=== PATIENT | male | born 1975 | race Asian ===

== ENCOUNTER 2017-03-28 16:01 | Inpatient (IN) | payer BC, OTHER ==
[~2017-03-28] VITALS: Ht 165.1 cm; Wt 55.5 kg
[~2017-03-28 16:01] MED LIST: ADV25050 INH; ALBU8.5H3 INH; MONT10TA24 PO; PRED10TA PO; RTPRO5 NEB
[2017-03-28] MEDS ORDERED: MAGNESIUM SULFATE 1 GM/D5W 100 ML ONE (16:06)
[2017-03-28] MEDS ORDERED: METHYLPREDNISOLONE 125 MG INJ ONE (16:06)
[2017-03-28] MEDS ORDERED: METHYLPREDNISOLONE 125 MG INJ IV STA (16:09)
[2017-03-28] MEDS ORDERED: SOD CHLORIDE 0.9% 1,000 ML IV STA (16:09)
[2017-03-28] MEDS ORDERED: IPRATROPIUM (NEB) 0.5 MG/2.5 ML AMP NEB STA (16:09)
[2017-03-28] MEDS ORDERED: MAGNESIUM SULFATE 2 GM/50 ML 50 ML IVPB STA (16:09)
[2017-03-28] MEDS ORDERED: ALBUTEROL 0.5% (NEB) 2.5 MG/0.5 ML AMP INH STA (16:09)
[2017-03-28 16:31] LABS: BASOPHIL # 0.1 10^3/ul (0.0-0.1); BASOPHILS % 0.9 % (0.0-2.0); EOSINOPHILS # 1.2 10^3/ul (0.0-0.5); HEMATOCRIT 49.8 % (42.0-52.0); HEMOGLOBIN 16.2 g/dl (14.0-18.0); LYMPHOCYTES # 2.7 10^3/ul (0.8-2.9); LYMPHOCYTES % 18.8 % (15.0-51.0); MEAN CORPUSCULAR HEMOGLOBIN 25.9 pg (29.0-33.0); MEAN CORPUSCULAR HGB CONC 32.5 g/dl (32.0-37.0); MEAN CORPUSCULAR VOLUME 79.6 fl (82.0-101.0); MEAN PLATELET VOLUME 9.6 fl (7.4-10.4); MONOCYTE # 0.9 10^3/ul (0.3-0.9); MONOCYTES % 6.1 % (0.0-11.0); NEUTROPHIL # 9.6 10^3/ul (1.6-7.5); NEUTROPHILS % 65.9 % (39.0-77.0); PLATELET COUNT 359 10^3/UL (140-415); RED BLOOD COUNT 6.26 10^6/ul (4.70-6.10); RED CELL DISTRIBUTION WIDTH 14.8 % (11.5-14.5); WHITE BLOOD COUNT 14.6 10^3/ul (4.8-10.8)
[2017-03-28 16:48] LABS: ANION GAP 28 (8-16); BLOOD UREA NITROGEN 10 mg/dl (7-20); CALCIUM 9.8 mg/dl (8.4-10.2); CARBON DIOXIDE 22 mmol/L (21-31); CHLORIDE 101 mmol/L (97-110); GLUCOSE 217 mg/dl (70-220); SODIUM 147 mmol/L (135-144)
[2017-03-28] MEDS ORDERED: IPRA4AER INHALATION (16:57)
[2017-03-28] MEDS ORDERED: ADV25050 INHALATION (16:57)
[2017-03-28] MEDS ORDERED: MONT10TA24 PO (16:58)
--- NOTE | 2017-03-28 16:58 | RADRPT ---
PROCEDURE: XR Chest. CLINICAL INDICATION: Shortness of breath, asthma TECHNIQUE: Single frontal view of the chest was obtained COMPARISON: None FINDINGS: The heart and mediastinum are within normal limits. There is increased opacity in the right upper lobe medially and right paratracheal region. There is no pleural effusion or pneumothorax. RPTAT: AA IMPRESSION: Increased opacity in the right upper lobe medially and paratracheal region, suspicious for right upp er lobe atelectasis. .Erick Marquez MD, MD Date Time Electronically viewed and signed by .Erick Marquez MD, MD on 03/28/2017 16:58 .S/
[2017-03-28] MEDS ORDERED: ALBU8.5H3 INH (16:59)
[2017-03-28 17:05] LABS: CREATININE 1.22 mg/dl (0.61-1.24); TROPONIN-I < 0.012 ng/ml (0.00-0.12)
[2017-03-28 17:24] LABS: Allen Test ACCEPTAB; Arterial Base Excess -12.3 mmol/L (-3.0-3); Arterial COHb 0.1 % (0.0-3.0); Arterial Fraction of Oxyhgb 98.8 % (93.0-99.0); Arterial HCO3 20.4 mmol/L (22.0-26.0); Arterial MetHb 0.2 % (0.0-1.5); Arterial Total Hemglobin 14.8 g/dl (12.0-18.0); Blood Gas IEPAP 22/6; Blood Gas PS 14; MODE MASK - BIPAP
[2017-03-28 17:49] LABS: ACETAMINOPHEN < 10.0 ug/ml (10.0-30.0); ETHANOL < 10.0 mg/dl; SALICYLATE < 1.0 mg/dl (5.0-30.0)
[2017-03-28] MEDS ORDERED: SOD CHLORIDE 0.9% 1,000 ML IV ONE (18:30)
[2017-03-28 18:31] LABS: COCAINE Positive (NEGATIVE)
[2017-03-28 18:42] LABS: BARBITURATES Negative (NEGATIVE); BENZODIAZEPINES Negative (NEGATIVE); CANNABINOIDS Negative (NEGATIVE); OPIATES Negative (NEGATIVE)
[2017-03-28 18:45] LABS: AADO2 Arterial 23.9 mmHg (7.0-24.0); Allen Test ACCEPTAB; Arterial Base Excess -4.3 mmol/L (-3.0-3); Arterial COHb 0.9 % (0.0-3.0); Arterial Fraction of Oxyhgb 97.4 % (93.0-99.0); Arterial HCO3 22.2 mmol/L (22.0-26.0); Arterial MetHb 0.3 % (0.0-1.5); Blood Gas IEPAP 15/5; Blood Gas PS 10; MODE BIPAP
--- NOTE | 2017-03-28 18:47 | ERA ---
ER Documentation Chief Complaint Date/Time DATE: 03/28/17 TIME: 18:33 Chief Complaint RESPIRATORY DISTRESS PULLED OUT OF A CAR, DIAPHORTIC AND PALE HPI This is a 41-year-old male with a history of asthma, significant daily tobacco use, a previous episode of respiratory distress requiring admission, never intubated, who is presenting unresponsive in acute respiratory distress. The patient does move spontaneously, but he does not move to pain and is unable to answer any questions. His friend and are with him and were able to provide some additional history. He reportedly felt sick yesterday with some mild shortness of breath. He felt worse this morning, and he called off of work. Apparently his friend went home this afternoon to check up on him and found him unresponsive on the floor. The patient did have a pulse at that time. His friend then threw him into the car and drove him to the hospital immediately. The patient had a albuterol inhaler in his pocket. He does not take any other medications. According to his , the patient is stubborn and does not often go to the hospital. ROS Patient unresponsive and unable to provide a review of systems. Medications Home Meds Reported Medications Albuterol Sulfate* (Proair HFA*) 8.5 Gm Hfa.aer.ad, 2 PUFF INH QID Y for WHEEZING AND SOB, #1 INHALER 03/28/17 Montelukast Sodium* (Montelukast Sodium*) 10 Mg Tablet, 10 MG PO QHS, #30 TAB 03/28/17 Albuterol/Ipratropium* (Combivent Respimat*) 20-100 Mcg/Inh - 4 Gm Aer.w.adap, 2 PUFF INHALATION Q6H, #1 INHALER 03/28/17 Salmeterol Xinaf/Fluticasone* (Advair*) 250-50 Diskus Inhaler, 1 INH INHALATION BID, #1 INHALER 03/28/17 Allergies Allergies: Coded Allergies: No Known Allergy (Unverified , 03/28/17) PMhx/Soc Medical and Surgical Hx: pt denies Surgical Hx History of Surgery: No Anesthesia Reaction: No Hx Neurological Disorder: No Hx Respiratory Disorders: Yes (ASTHMA / HX OF PNEUMONIA) Hx Cardiac Disorders: No Hx Psychiatric Problems: No Hx Miscellaneous Medical Probl: No Hx Alcohol Use: Yes Hx Substance Use: No Hx Tobacco Use: Yes Smoking Status: Current every day smoker FmHx Unable to assess secondary to patient unresponsiveness Physical Exam Vitals Vital Signs Date Time Temp Pulse Resp B/P Pulse Ox O2 Delivery O2 Flow Rate FiO2 03/28/17 19:15 97.5 91 22 129/95 100 Mask 9.0 03/28/17 17:40 97.1 104 19 129/97 100 BIPAP 8.0 03/28/17 17:32 97.1 102 20 120/101 100 BIPAP 8.0 03/28/17 17:20 97.1 104 21 135/97 100 BIPAP 8.0 03/28/17 17:11 96.8 103 20 126/101 100 BIPAP 8.0 03/28/17 16:30 96.8 97 25 145/99 100 BIPAP 8.0 03/28/17 16:09 97.5 108 30 137/110 100 03/28/17 16:05 96.7 100 16 137/95 100 BIPAP 15.0 03/28/17 16:05 Bag Valve Mask 15.0 03/28/17 16:05 Bag Valve Mask 15 03/28/17 16:02 98 100 50 03/28/17 16:02 99 16 100 50 Physical Exam Const: [] Head: Atraumatic Eyes: Normal Conjunctiva ENT: Normal External Ears, Nose and Mouth. Neck: Full range of motion..~ No meningismus. Resp: Clear to auscultation bilaterally Cardio: Regular rate and rhythm, no murmurs Abd: Soft, non tender, non distended. Normal bowel sounds Skin: No petechiae or rashes Back: No midline or flank tenderness Ext: No cyanosis, or edema Neur: Awake and alert Psych: Normal Mood and Affect Result Diagram: 03/28/17 1620 03/28/17 1620 Results 24 hrs Laboratory Tests Test 03/28/17 16:09 03/28/17 16:20 03/28/17 17:55 03/28/17 18:31 Blood Gas Specimen Source Blood arterial Blood arterial Arterial Blood Date Drawn 03/28/2017 4:10:52 PM 03/28/2017 6:40:58 PM Arterial Blood pH (Temp corrected) 7.014 7.302 Arterial Blood pCO2 (Temp correct) 82.0mmhg 46.0mmhg Arterial Blood pO2 (Temp corrected) 312.5mmHG 136.0mmHG Arterial Blood HCO3 20.4mmol/L 22.2mmol/L Arterial Blood Base Excess -12.3mmol/L -4.3mmol/L Arterial Blood Oxygen Saturation 99.1mmHG 98.6mmHG [place] Test ACCEPTAB ACCEPTAB Arterial Blood Gas Puncture Site Right Radial Left Radial Arterial Blood Carboxyhemoglobin 0.1% 0.9% Arterial Blood Methemoglobin 0.2% 0.3% Oxyhemoglobin Percent 98.8% 97.4% Total Hemoglobin 14.8g/dl 15.0g/dl Blood Gas Temperature 37.0C 37.0C Blood Gas Respiration Rate 16.0 15.0 Blood Gas Actual Respiration Rate 32 19 Blood Gas Modality MASK - BIPAP BIPAP FiO2 50.0% 30.0% Blood Gas Pressure Support 14 10 Blood Gas IPAP/EPAP Ratio 22/6 15/5 Blood Gas Critical Value Read Back DR. JC Blood Gas Notified Whom RT RT Blood Gas Notified Time 03/28/2017 5:22:38 PM 03/28/2017 6:45:25 PM White Blood Count 14.610^3/ul Red Blood Count 6.2610^6/ul Hemoglobin 16.2g/dl Hematocrit 49.8% Mean Corpuscular Volume 79.6fl Mean Corpuscular Hemoglobin 25.9pg Mean Corpuscular Hemoglobin Concent 32.5g/dl Red Cell Distribution Width 14.8% Platelet Count 69939^3/UL Mean Platelet Volume 9.6fl Neutrophils % 65.9% Lymphocytes % 18.8% Monocytes % 6.1% Eosinophils % 8.0% Basophils % 0.9% Nucleated Red Blood Cells % 0.0/100WBC Neutrophils # 9.610^3/ul Lymphocytes # 2.710^3/ul Monocytes # 0.910^3/ul Eosinophils # 1.210^3/ul Basophils # 0.110^3/ul Nucleated Red Blood Cells # 0.010^3/ul Sodium Level 147mmol/L Potassium Level 4.0mmol/L Chloride Level 101mmol/L Carbon Dioxide Level 22mmol/L Anion Gap 28 Blood Urea Nitrogen 10mg/dl Creatinine 1.22mg/dl Glucose Level 217mg/dl Calcium Level 9.8mg/dl Troponin I < 0.012ng/ml Salicylates Level < 1.0mg/dl Acetaminophen Level < 10.0ug/ml Ethyl Alcohol Level < 10.0mg/dl Urine Opiates Screen Negative Urine Barbiturates Negative Urine Amphetamines Screen Negative Urine Benzodiazepines Screen Negative Urine Cocaine Screen Positive Urine Cannabinoids Negative Blood Gas A-a O2 Differential 23.9mmHg Current Medications Medications (Trade) Dose Ordered Sig/Rylie Route PRN Reason Start Time Stop Time Status Last Admin Dose Admin Sodium Chloride (NS) 1,000 ml @ 1,000 mls/hr Q1H STAT IV 03/28/17 16:09 03/28/17 17:08 DC 03/28/17 16:32 Ipratropium [place] (Atrovent 0.02% (Neb)) 1.5 mg ONCE STAT NEB 03/28/17 16:09 03/28/17 16:12 DC 03/28/17 16:51 Albuterol (Proventil 0.5% (Neb)) 15 mg ONCE STAT INH 03/28/17 16:09 03/28/17 16:12 DC 03/28/17 16:51 Methylprednisolone Sodium Succinate 125 mg 125 mg ONCE STAT IV 03/28/17 16:09 03/28/17 16:12 DC 03/28/17 16:29 Magnesium Sulfate (Magnesium Sulfate 2 Gm/50 ml) 50 ml @ 25 mls/hr ONCE STAT IVPB 03/28/17 16:09 03/28/17 18:08 DC 03/28/17 16:24 Methylprednisolone Sodium Succinate 125 mg 125 mg STK-MED ONCE .ROUTE 03/28/17 16:06 03/28/17 18:22 DC Magnesium Sulfate/ Dextrose 100 ml @ ud STK-MED ONCE .ROUTE 03/28/17 16:06 03/28/17 18:22 DC Sodium Chloride (NS) 1,000 ml @ 1,000 mls/hr Q1H ONCE IV 03/28/17 18:30 03/28/17 19:29 03/28/17 18:54 Albuterol (Proventil 0.083% (Neb)) 15 mg ONCE STAT HHN 03/28/17 18:51 03/28/17 19:00 DC 03/28/17 19:03 Albuterol (Proventil 0.083% (Neb)) 2.5 mg STK-MED ONCE .ROUTE 03/28/17 18:54 03/28/17 18:55 DC Procedures/MDM The patient presented unresponsive, in severe respiratory distress and critically ill. The patient was immediately brought to her room. The patient appeared to be severely dyspneic and was on the verge of apnea. He was placed on high flow nasal cannula in addition to high flow through the BVM and we supported his breaths initially. The patient was unable to speak, but he did follow commands with significant redirection and persistence. There is a consideration to intubate this patient, but it was initially deferred as he was a known asthmatic and there is concern of a prolonged intubation course. The patient was started on BiPAP immediately. He was given serial doses of nebulized albuterol and Atrovent. He was given 2 g of magnesium. He is given 125 mg of Solu-Medrol. The patient's initial ABG demonstrated a pH of 7.0 and a CO2 of 80. The patient did have hypercarbic respiratory failure. The patient had a mild leukocytosis but no left shift. I do anticipate that this is reactive. The patient's history demonstrates a possibility of a viral syndrome leading to his asthma exacerbation. I do not suspect a bacterial etiology at this time and antibiotics will not be initiated. The patient's CMP is unremarkable. A UDS was obtained that was positive for cocaine. The patient did not have alcohol in his system. The patient's initial EKG demonstrated a sinus tachycardia, indeterminate to right axis deviation, ST depressions in leads II and V4 through V6. I was concerned of a demand ischemia. The patient's troponin was negative. The patient's mentation significantly improved while on BiPAP. A repeat ABG demonstrated a pH of 7.302 and CO2 of 46. A repeat EKG demonstrated a sinus tachycardia with right atrial enlargement. However, he no longer had any T-wave inversions or ST depressions. I suspect that his previous EKG was associated with significant cardiac stress and demand ischemia. This will need to be monitored in the hospital, but I do not believe that the patient is going through an acute coronary syndrome at this time. The patient will require admission to the ICU for further evaluation and management. We will attempt to wean him off of BiPAP in the emergency department as his symptoms have markedly improved. Critical care time was 35 minutes not including any other billable procedures. Departure Diagnosis: Primary Impression: Respiratory distress Additional Impressions: Acute respiratory failure with hypoxia and hypercarbia Asthma exacerbation Respiratory acidosis Condition: Critical CHERY JC MD Mar 28, 2017 18:47
[2017-03-28] MEDS ORDERED: ALBUTEROL 0.083% (NEB) 2.5 MG/3 ML AMP HHN STA (18:51)
[2017-03-28] MEDS ORDERED: ALBUTEROL 0.083% (NEB) 2.5 MG/3 ML AMP ONE (18:54)
[2017-03-28] MEDS ORDERED: LORAZEPAM 2 MG INJ IV PRN (22:00)
[2017-03-28] MEDS ORDERED: ONDANSETRON 4 MG INJ IV PRN (22:00)
[2017-03-28] MEDS ORDERED: ACETAMINOPHEN 325 MG TAB PO PRN (22:00)
[2017-03-28] MEDS ORDERED: NACL 0.9% 3 ML SYG IV SCH (22:00)
[2017-03-28 22:15] VITALS: TEMP 98.8
[2017-03-28 23:08] VITALS: PULSE 110
[2017-03-28 23:10] VITALS: PULSE 103
--- NOTE | 2017-03-28 23:15 | HP ---
Date/Time of Note Date/Time of Note DATE: 03/28/17 TIME: 23:15 Assessment/Plan VTE Prophylaxis VTE Prophylaxis Intervention: SCD's Assessment/Plan Chief Complaint/Hosp Course This is a 41-year-old male being admitted to the telemetry floor for: #1 asthma exacerbation: The underlying cause of this trigger is not known at this time however patient was positive for cocaine use and drug screen this could have caused this though patient denies even using cocaine. Patient was initially deemed possibly a candidate to be taken to the ICU, however patient subsequently improved on BiPAP. His ABG improved overall. Patient eventually was able to get weaned off the BiPAP the current time patient will continue to receive IV steroids, scheduled breathing treatments, continue home inhalers, no fevers at this time or any signs of infection. Will will obtain a CAT scan to further assess the lung morphology especially in the setting of patient's recent cocaine use. At the current time I do not feel antibiotics are indicated however will continue to monitor. #2 positive urine drug screen: Patient was found positive for cocaine. At the current time will put patient on as needed Ativan's for signs of agitation. Patient denies any recent use of cocaine. Monitor for any signs of withdrawal. #3 DVT and GI prophylaxis: SCDs, Protonix Further treatment strategy will be implemented as per the clinical course Problems: HPI/ROS Admit Date/Time Admit Date/Time Hx of Present Illness Chief complaint: Shortness of breath Medical information was gathered from the ED physician documentation as well as by the sister and the patient at the bedside. This is a 41-year-old male with a history of asthma, significant daily tobacco use, a previous episode of respiratory distress requiring admission, never intubated, who is presenting unresponsive in acute respiratory distress. Initially the patient was moving spontaneously but he was not properly responding to questions. At that time his was at the bedside and provided information to the ED physician. He reportedly felt sick yesterday with some mild shortness of breath. He felt worse this morning, and he called off of work. Apparently his friend went home this afternoon to check up on him and found him unresponsive on the floor. The patient did have a pulse at that time. His friend then threw him into the car and drove him to the hospital immediately. The patient had a albuterol inhaler in his pocket. He does not take any other medications. According to his , the patient is stubborn and does not often go to the hospital. Upon my examination patient was still somnolent but he was easily arousable and he was answering questions appropriately. His sister was at the bedside. She denied any knowledge of the patient having any previous history of drug use. Patient denied any history of drug use and when he was question regarding the cocaine found in his urine drug screen he denied it. Patient was able to be weaned off to room air prior to my examination. Allergies: Tuna Medications: See ESDRAS FIGUEROA Const: As per HPI Eyes : No pain discharge or redness or change in visual acuity ENT: No pain, sore throat, congestion, congestion, dysphagia or discharge Respiratory: As per HPI Cardiovascular: No chest pain, palpitation, PND, or edema GI : no change in appetite, abdominal pain, nausea, vomiting, diarrhea, constipation, or change in the color his stool Genitourinary: No dysuria, hematuria, flank pain , discharge or CVA tenderness Musculoskeletal: No joint pain, back pain, neck pain, restricted range of motion in neck or joints Skin: No rash, bruising or hives Neuro: As per HPI Endocrine: No polyuria, polydipsia, temperature intolerance Psych: No hallucination, depression, anxiety or suicidal ideation PMH/Family/Social Past Medical History Asthma, bronchitis Past Surgical History Past Surgical Hx: no surgical history Family History Significant Family History: no pertinent family hx Social History Alcohol Use: none Smoking Status: Current every day smoker (Half pack per day 10 years) Drug Use: other (Patient denies cocaine use, however there was cocaine positive urine drug screen.) Exam/Review of Systems Vital Signs Vitals Vital Signs Date Time Temp Pulse Resp B/P Pulse Ox O2 Delivery O2 Flow Rate FiO2 03/28/17 22:15 98.8 107 20 100/77 98 Nasal Cannula 2.0 03/28/17 16:02 50 Exam Exam General: Patient is lying in bed somnolent but arousable HEENT: Atraumatic, normocephalic. The pupils are equal, round and reactive. Extraocular motor are intact Neck: Supple with full range of motion. No rigidity or meningismus Chest: Nontender Lungs: Expiratory wheezing on exam, in no acute respiratory distress Heart: Sinus tachycardia Abdomen: Soft , nontender, nondistended , bowel sounds are present. No guarding no rebound tenderness , No masses or organomegaly. No costovertebral temporal angle mass Extremities: Normal to inspection, no edema no cyanosis Neurologic: Easily arousable, able to answer questions appropriately. Additional Comments PROCEDURE: XR Chest. CLINICAL INDICATION: Shortness of breath, asthma TECHNIQUE: Single frontal view of the chest was obtained COMPARISON: None FINDINGS: The heart and mediastinum are within normal limits. There is increased opacity in the right upper lobe medially and right paratracheal region. There is no pleural effusion or pneumothorax. RPTAT: AA IMPRESSION: Increased opacity in the right upper lobe medially and paratracheal region, suspicious for right upper lobe atelectasis. .Erick Marquez MD, MD Date Time Electronically viewed and signed by .Erick Marquez MD, MD on 03/28/2017 16: 58 .S/ CC: CHERY JC MD Labs Result Diagram: 03/28/17 1620 03/28/17 1620 Medications Medications Current Medications Sodium Chloride (NS) 1,000 ml @ 80 mls/hr [id number] IV ; Start 03/28/17 at 21:53 Lorazepam (Ativan) 1 mg Q4H PRN IV AGITATION/ANXIETY; Start 03/28/17 at 22:00 Ondansetron HCl (Zofran Inj) 4 mg Q6H PRN IV NAUSEA AND/OR VOMITING; Start 03/28 at 22:00 Acetaminophen (Tylenol Tab) 650 mg Q6H PRN PO PAIN LEVEL 1-3 OR FEVER; Start at 22:00 Methylprednisolone Sodium Succinate (Solu-Medrol) 40 mg Q12 IV ; Start 03/29/17 at 09:00 LUZ EARLY Mar 28, 2017 23:15
--- NOTE | 2017-03-28 23:15 | RADRPT ---
PROCEDURE: CT Chest without contrast. CLINICAL INDICATION: Asthma exacerbation, history of cocaine use. TECHNIQUE: A CT scan of the chest without contrast was performed. Coronal and sagittal reformatted images were obtained from the axial source images. CTDIvol: 4.11 mGy. DLP: 169 point and mGy-cm. One or more of the following dose reduction techniques were used: - Automated exposure control. - Adjustment of the mA and/or kV according to patient size. - Use of iterative reconstruction technique. COMPARISON: None. FINDINGS: There is no suspicious thyroid lesion. No thoracic lymphadenopathy is seen. The trachea and mainst em bronchi are patent. The heart is not enlarged. There is no pericardial effusion. There is diffuse bronchial wall thickening. No pulmonary edema or consolidation is identified. Mil d paraseptal emphysema is noted along the right upper lobe. There is no pleural effusion or pneumoth orax. Limited evaluation of the upper abdomen is unremarkable. There is no suspicious osseous lesion. IMPRESSION: 1. Diffuse bronchial wall thickening, possibly representing an inflammatory or infectious process. 2. No pulmonary edema or consolidation. RPTAT: HTAR .Tyson Garrett MD, MD Date Time Electronically viewed and signed by .Tyson Garrett MD, on 03/28/2017 23:15 .R/
[2017-03-28 23:28] VITALS: Ht 165.1 cm; Wt 55.5 kg
[2017-03-28 23:31] VITALS: BP 110/61; RESP 18
[2017-03-29] VITALS (11 sets, daily range): BP systolic 97–125; BP diastolic 57–78; PULSE 88–100; RESP 16–19
[2017-03-29] MEDS: SOD CHLORIDE 0.9% 1,000 ML IV SCH ×2 (00:15→10:23)
[2017-03-29] MEDS: LEVALBUTEROL (NEB) 1.25 MG/0.5 ML AMP HHN SCH ×3 (01:19→08:18)
[2017-03-29] MEDS: KETOROLAC 15 MG INJ IV PRN (01:26)
[2017-03-29] MEDS ORDERED: ALBUTEROL 18 GM INHALER INH PRN (04:30)
[2017-03-29] MEDS ORDERED: NON-FORMULARY/PATIENT OWN MED (Albuterol/Ipratropium* (Combivent Respimat*) 2 PUFF) INHALATION SCH (04:30)
[2017-03-29] MEDS ORDERED: PANTOPRAZOLE (EC) 40 MG TAB PO SCH (06:00)
[2017-03-29 07:50] LABS: BASOPHILS % 0.1 % (0.0-2.0); HEMATOCRIT 36.2 % (42.0-52.0); HEMOGLOBIN 12.1 g/dl (14.0-18.0); LYMPHOCYTES # 0.7 10^3/ul (0.8-2.9); LYMPHOCYTES % 9.1 % (15.0-51.0); MEAN CORPUSCULAR HEMOGLOBIN 25.1 pg (29.0-33.0); MEAN CORPUSCULAR HGB CONC 33.4 g/dl (32.0-37.0); MEAN CORPUSCULAR VOLUME 74.9 fl (82.0-101.0); MEAN PLATELET VOLUME 9.3 fl (7.4-10.4); MONOCYTE # 0.7 10^3/ul (0.3-0.9); MONOCYTES % 9.5 % (0.0-11.0); NEUTROPHILS % 80.9 % (39.0-77.0); PLATELET COUNT 259 10^3/UL (140-415); RED BLOOD COUNT 4.83 10^6/ul (4.70-6.10); RED CELL DISTRIBUTION WIDTH 14.6 % (11.5-14.5); WHITE BLOOD COUNT 7.4 10^3/ul (4.8-10.8)
[2017-03-29 08:21] LABS: ALBUMIN 3.9 g/dl (3.3-4.9); ALBUMIN/GLOBULIN RATIO 1.69; BILIRUBIN,INDIRECT 0.4 mg/dl (0-1.1); BILIRUBIN,TOTAL 0.4 mg/dl (0.2-1.3); CALCIUM 8.9 mg/dl (8.4-10.2); CREATININE 0.87 mg/dl (0.61-1.24); MAGNESIUM 2.2 mg/dl (1.7-2.5); TOTAL PROTEIN 6.2 g/dl (6.1-8.1)
[2017-03-29] MEDS: SALMETEROL/FLUTICASONE 250/50 INHA INH SCH ×2 (08:41→22:05)
[2017-03-29] MEDS ORDERED: METHYLPREDNISOLONE 40 MG INJ IV SCH (09:00)
[2017-03-29] MEDS ORDERED: ALBUTEROL/IPRATROPIUM (NEB) 3 ML AMP HHN SCH (10:00)
--- NOTE | 2017-03-29 15:15 | PN ---
Date/Time of Note Date/Time of Note DATE: 03/29/17 TIME: 15:12 Assessment/Plan VTE Prophylaxis VTE Prophylaxis Intervention: SCD's Lines/Catheters IV [facility]ter [facility] Urinary Cath still in place: No Assessment/Plan Assessment/Plan 41 yo M with pmhx asthma admitted for wheezing/SOB 2/2 asthma exacerbation. Suspect 2/2 tobacco and/or cocaine abuse PLAN PO steroids nebs abstention from illicits advised NRT discharge once wheezing improves Subjective 24 Hr Interval Summary Free Text/Dictation Pt endorses smoking cigarettes but denies illicits. Reports breathing is a little better Exam/Review of Systems Vital Signs Vitals Vital Signs Date Time Temp Pulse Resp B/P Pulse Ox O2 Delivery O2 Flow Rate FiO2 03/29/17 13:46 87 20 98 Nasal Cannula 2.0 03/29/17 12:03 98.4 105/57 03/29/17 04:50 28 Intake and Output 03/28/17 03/28/17 03/29/17 15:00 23:00 07:00 Intake Total 980 ml Output Total 500 ml Balance 480 ml Exam nad, sitting up in bed no mrg lungs with copious wheezing in all [place] abd soft no rashes lung imaging results reviewed UTox + for cocaine Results Result Diagram: 03/29/17 0725 03/29/17 0725 Results 24 hrs Laboratory Tests Test 03/28/17 15:53 03/28/17 16:09 03/28/17 16:20 03/28/17 17:55 Bedside Glucose 159 Blood Gas Specimen Source Blood arterial Arterial Blood Date Drawn 03/28/2017 4:10:52 PM Arterial Blood pH (Temp corrected) 7.014 *L Arterial Blood pCO2 (Temp correct) 82.0 *H Arterial Blood pO2 (Temp corrected) 312.5 H Arterial Blood HCO3 20.4 L Arterial Blood Base Excess -12.3 L Arterial Blood Oxygen Saturation 99.1 H [place] Test ACCEPTAB Arterial Blood Gas Puncture Site Right Radial Arterial Blood Carboxyhemoglobin 0.1 Arterial Blood Methemoglobin 0.2 Oxyhemoglobin Percent 98.8 Total Hemoglobin 14.8 Blood Gas Temperature 37.0 Blood Gas Respiration Rate 16.0 Blood Gas Actual Respiration Rate 32 Blood Gas Modality MASK - BIPAP FiO2 50.0 Blood Gas Pressure Support 14 Blood Gas IPAP/EPAP Ratio 22/6 Blood Gas Critical Value Read Back DR. JC Blood Gas Notified Whom RT Blood Gas Notified Time 03/28/2017 5:22:38 PM White Blood Count 14.6 H Red Blood Count 6.26 H Hemoglobin 16.2 Hematocrit 49.8 Mean Corpuscular Volume 79.6 L Mean Corpuscular Hemoglobin 25.9 L Mean Corpuscular Hemoglobin Concent 32.5 Red Cell Distribution Width 14.8 H Platelet Count 359 Mean Platelet Volume 9.6 Neutrophils % 65.9 Lymphocytes % 18.8 Monocytes % 6.1 Eosinophils % 8.0 H Basophils % 0.9 Nucleated Red Blood Cells % 0.0 Neutrophils # 9.6 H Lymphocytes # 2.7 Monocytes # 0.9 Eosinophils # 1.2 H Basophils # 0.1 Nucleated Red Blood Cells # 0.0 Sodium Level 147 H Potassium Level 4.0 Chloride Level 101 Carbon Dioxide Level 22 Anion Gap 28 H Blood Urea Nitrogen 10 Creatinine 1.22 Glucose Level 217 Calcium Level 9.8 Troponin I < 0.012 Salicylates Level < 1.0 L Acetaminophen Level < 10.0 L Ethyl Alcohol Level < 10.0 Urine Opiates Screen Negative Urine Barbiturates Negative Urine Amphetamines Screen Negative Urine Benzodiazepines Screen Negative Urine Cocaine Screen Positive Urine Cannabinoids Negative Test 03/28/17 18:31 03/29/17 07:25 Blood Gas Specimen Source Blood arterial Arterial Blood Date Drawn 03/28/2017 6:40:58 PM Arterial Blood pH (Temp corrected) 7.302 L Arterial Blood pCO2 (Temp correct) 46.0 H Arterial Blood pO2 (Temp corrected) 136.0 H Arterial Blood HCO3 22.2 Arterial Blood Base Excess -4.3 L Arterial Blood Oxygen Saturation 98.6 H [place] Test ACCEPTAB Arterial Blood Gas Puncture Site Left Radial Arterial Blood Carboxyhemoglobin 0.9 Arterial Blood Methemoglobin 0.3 Blood Gas A-a O2 Differential 23.9 Oxyhemoglobin Percent 97.4 Total Hemoglobin 15.0 Blood Gas Temperature 37.0 Blood Gas Respiration Rate 15.0 Blood Gas Actual Respiration Rate 19 Blood Gas Modality BIPAP FiO2 30.0 Blood Gas Pressure Support 10 Blood Gas IPAP/EPAP Ratio 15/5 Blood Gas Notified Whom RT Blood Gas Notified Time 03/28/2017 6:45:25 PM White Blood Count 7.4 # Red Blood Count 4.83 # Hemoglobin 12.1 #L Hematocrit 36.2 #L Mean Corpuscular Volume 74.9 L Mean Corpuscular Hemoglobin 25.1 L Mean Corpuscular Hemoglobin Concent 33.4 Red Cell Distribution Width 14.6 H Platelet Count 259 # Mean Platelet Volume 9.3 Neutrophils % 80.9 H Lymphocytes % 9.1 L Monocytes % 9.5 Eosinophils % 0.0 Basophils % 0.1 Nucleated Red Blood Cells % 0.0 Neutrophils # 6.0 Lymphocytes # 0.7 L Monocytes # 0.7 Eosinophils # 0.0 Basophils # 0.0 Nucleated Red Blood Cells # 0.0 Sodium Level 141 Potassium Level 4.0 Chloride Level 101 Carbon Dioxide Level 27 Anion Gap 17 #H Blood Urea Nitrogen 15 Creatinine 0.87 Glucose Level 123 # Hemoglobin A1c 5.1 Calcium Level 8.9 Magnesium Level 2.2 Total Bilirubin 0.4 Direct Bilirubin 0.00 Indirect Bilirubin 0.4 Aspartate Amino Transf (AST/SGOT) 22 Alanine Aminotransferase (ALT/SGPT) 38 Alkaline Phosphatase 40 L Total Protein 6.2 Albumin 3.9 Globulin 2.30 Albumin/Globulin Ratio 1.69 Medications Medications Current Medications Ketorolac Tromethamine (Toradol) 15 mg Q6H PRN IV PAIN Last administered on 03/29 01:26; Admin Dose 15 MG; Start 03/29/17 at 00:00; Stop 04/01/17 at 00:00 Montelukast Sodium (Singulair) 10 mg QHS PO ; Start 03/29/17 at 21:00 Salmeterol Xinafoate/ Fluticasone (Advair 250/50 Diskus) 1 inh BID INH Last administered on 03/29/17 08:41; Admin Dose 1 INH; Start 03/29/17 at 09:00 Prednisone (Prednisone) 40 mg DAILY PO ; Start 03/30/17 at 09:00 BRENT BRAY MD Mar 29, 2017 15:14
[2017-03-29] MEDS ORDERED: NICOTINE (21 MG/24 HR) PATCH TRANSDERM ONE (15:30)
[2017-03-29] MEDS ORDERED: MONTELUKAST 10 MG TAB PO SCH (21:00)
[2017-03-29] MEDS: NICOTINE (21 MG/24 HR) PATCH TRANSDERM SCH (22:05)
[2017-03-30] VITALS (7 sets, daily range): BP systolic 124–132; BP diastolic 77–88; PULSE 67–75; RESP 19–20
--- NOTE | 2017-03-30 01:52 | CONS ---
DATE OF ADMISSION: 03/28/2017 DATE OF CONSULTATION: 03/29/2017 Pulmonary Consultation REASON FOR CONSULTATION: Respiratory distress. Thank you, Dr. Fernando, for this consultation. HISTORY OF PRESENT ILLNESS: This is a 41-year-old gentleman, poor historian, came in yesterday, significant respiratory distress and altered. Apparently had worsening dyspnea yesterday with mild nausea. He was found unresponsive by a friend on the floor but did have a pulse at that time. Brought to the hospital where he was placed on supplemental oxygen, given bronchodilator treatment with subsequent improvement in respiratory status. Urinalysis was positive for cocaine. PAST MEDICAL HISTORY: Tobacco use. Questionable asthma. History substance abuse, positive for cocaine. MEDICATION: Medications per chart. ALLERGIES: ALLERGIES ARE NONE. SOCIAL HISTORY: Positive tobacco history. Occasional alcohol and positive urinalysis for cocaine. FAMILY HISTORY: Noncontributory. REVIEW OF SYSTEMS: Twelve point review of systems negative other than that mentioned above. PHYSICAL EXAMINATION: GENERAL APPEARANCE: Well-developed, well-nourished gentleman, comfortable at rest, no acute distress. VITAL SIGNS: Currently afebrile. Pulse is 99, blood pressure 106/87, O2 sat 98 percent on 2 L nasal cannula. NECK: Supple. No JVD or lymphadenopathy. CARDIAC: No added sounds or murmurs. CHEST: Diminished air movement bilaterally but no rales or wheezes. ABDOMEN: Soft, nontender. No guarding or rebound. EXTREMITIES: No cyanosis, clubbing or edema. NEUROLOGIC: No focal deficits. LABORATORY: Chest x-ray shows bronchial wall thickening. Possible right upper lobe atelectasis on repeat chest x-ray. Labs: White count now within normal limits 7.4, hemoglobin 12.1, platelets of 259. Chemistry within normal limits. ABG pH 7.3, pCO2 of 46, pO2 of 136. As stated, urinalysis was positive for cocaine. IMPRESSION AND PLAN: 1. Likely acute bronchospasm secondary to substance abuse. Possible underlying acute bronchitis also. 2. Incomplete data. 3. Ongoing tobacco use. Patient will require: 4. Steroid taper. 5. Bronchodilators. 6. Anticipate discharge soon. Needs counseling on drug abuse. Dictated By: Jadiel Valdez MD /dori/roman /Document#: [id number]
[2017-03-30] MEDS: KETOROLAC 15 MG INJ IV PRN (04:17)
[2017-03-30] MEDS: NICOTINE (21 MG/24 HR) PATCH TRANSDERM SCH (08:14)
[2017-03-30] MEDS: SALMETEROL/FLUTICASONE 250/50 INHA INH SCH (08:14)
[2017-03-30] MEDS ORDERED: predniSONE 20 MG TAB PO SCH (09:00)
[2017-03-30] MEDS ORDERED: ADV25050 INHALATION (09:41)
[2017-03-30] MEDS ORDERED: ALBU2.5V3 NEB (09:41)
[2017-03-30] MEDS ORDERED: ALBU8.5H3 INH (09:41)
[2017-03-30] MEDS ORDERED: MONT10TA24 PO (09:41)
[2017-03-30] MEDS ORDERED: PRED20TA PO (09:41)
--- NOTE | 2017-03-30 10:08 | PDOCDIS ---
Discharge Instructions CONDITION Patient Condition: Stable HOME CARE INSTRUCTIONS: Special Diet: reg ACTIVITY: Activity Restrictions: Slowly Increase Activity FOLLOW UP/APPOINTMENTS Follow-up Plan Follow up with your regular doctor within 7 days NO SMOKING OF ANY KIND Please schedule an appointment with the lung doctor to get your asthma better controlled (you already have his card) BRENT BRAY MD Mar 30, 2017 10:08
--- NOTE | 2017-03-30 10:13 | DS ---
Date/Time of Note Date/Time of Note DATE: 03/30/17 TIME: 10:09 Discharge Summary Admission/Discharge Info Admit Date/Time Mar 28, 2017 at 20:24 Discharge Date/Time Discharge Diagnosis asthma exacerbation Patient Condition: Stable Consults pulmonology Procedures CXR 8.8 IMPRESSION: Increased opacity in the right upper lobe medially and paratracheal region, suspicious for right upper lobe atelectasis. NCCT chest 8.8 IMPRESSION: 1. Diffuse bronchial wall thickening, possibly representing an inflammatory or infectious process. 2. No pulmonary edema or consolidation. Hx of Present Illness Chief complaint: Shortness of breath Medical information was gathered from the ED physician documentation as well as by the sister and the patient at the bedside. This is a 41-year-old male with a history of asthma, significant daily tobacco use, a previous episode of respiratory distress requiring admission, never intubated, who is presenting unresponsive in acute respiratory distress. Initially the patient was moving spontaneously but he was not properly responding to questions. At that time his was at the bedside and provided information to the ED physician. He reportedly felt sick yesterday with some mild shortness of breath. He felt worse this morning, and he called off of work. Apparently his friend went home this afternoon to check up on him and found him unresponsive on the floor. The patient did have a pulse at that time. His friend then threw him into the car and drove him to the hospital immediately. The patient had a albuterol inhaler in his pocket. He does not take any other medications. According to his , the patient is stubborn and does not often go to the hospital. Upon my examination patient was still somnolent but he was easily arousable and he was answering questions appropriately. His sister was at the bedside. She denied any knowledge of the patient having any previous history of drug use. Patient denied any history of drug use and when he was question regarding the cocaine found in his urine drug screen he denied it. Patient was able to be weaned off to room air prior to my examination. Allergies: Tuna Medications: See MAR Hospital Course Pt admitted for asthma exacerbation. Given steroid burst, started on inhalers. Regarding pt's +Utox for cocaine, pt states he smokes THC frequently and thinks he may have smoked something "laced" with cocaine. Given his known asthma, pt advised to not smoke any substances to prevent worsening his asthma. Breathing improved during his stay and pt requested to be discharged on date of discharge. Pt discharged to complete steroid burst, all maintenance meds rewritten. Pt advised to f/u with PCP and pulm Home Meds Active Scripts Albuterol Sulfate* (Albuterol Sulfate* Neb) 0.083%-3 Ml Neb, 1.25 MG NEB Q3H Y for WHEEZING AND SOB, #30 VIAL Prov:BRENT BRAY MD 03/30/17 Prednisone* (Prednisone*) 20 Mg Tab, 40 MG PO DAILY for 4 Days, #4 TAB Prov:BRENT BRAY MD 03/30/17 Albuterol Sulfate* (Proair HFA*) 8.5 Gm Hfa.aer.ad, 2 PUFF INH QID Y for WHEEZING AND SOB, #1 INHALER Prov:BRENT BRAY MD 03/30/17 Montelukast Sodium* (Montelukast Sodium*) 10 Mg Tablet, 10 MG PO QHS, #30 TAB Prov:BRENT BRAY MD 03/30/17 Salmeterol Xinaf/Fluticasone* (Advair*) 250-50 Diskus Inhaler, 1 INH INHALATION BID for 30 Days, #1 INHALER Prov:BRENT BRAY MD 03/30/17 Prednisone* (Prednisone*) 10 Mg Tab, 10 MG PO DAILY, #30 TAB 1. Take 40mg by mouth daily for 3 days 2. then 30mg by mouth daily for 3 days 3. then 20mg by mouth daily for 3 days 4. then 10mg by mouth daily for 3 days Prov:BJ STEARNS 02/22/16 Salmeterol Xinaf/Fluticasone* (Advair*) 250-50 Diskus Inhaler, 1 INH INH BID for 30 Days Prov:BJ STEARNS 02/22/16 Montelukast Sodium* (Montelukast Sodium*) 10 Mg Tablet, 10 MG PO HS for 30 Days , TAB Prov:BJ STEARNS 02/22/16 Albuterol Sulfate* (Proventil* Neb) 0.5% Nebu, 2.5 MG NEB Q2H RESP THERAPY Y for SHORTNESS OF BREATH, #90 Prov:BJ STEARNS 02/22/16 Albuterol Sulfate* (Proair HFA*) 8.5 Gm Hfa.aer.ad, 2 PUFF INH Q4H Y for WHEEZING AND SOB, #1 INHALER Prov:DARYNBJ 02/22/16 Reported Medications Albuterol/Ipratropium* (Combivent Respimat*) 20-100 Mcg/Inh - 4 Gm Aer.w.adap, 2 PUFF INHALATION Q6H, #1 INHALER 03/28/17 Follow-up Plan PCP within 7 days pulm for asthma management Primary Care Provider Time spent on discharge: > 30 minutes BRENT BRAY MD Mar 30, 2017 10:13
[2017-03-30 10:15] LABS: BASOPHILS % 0.5 % (0.0-2.0); EOSINOPHILS # 0.5 10^3/ul (0.0-0.5); EOSINOPHILS % 5.9 % (0.0-7.0); HEMATOCRIT 38.9 % (42.0-52.0); HEMOGLOBIN 12.8 g/dl (14.0-18.0); LYMPHOCYTES # 1.3 10^3/ul (0.8-2.9); LYMPHOCYTES % 15.5 % (15.0-51.0); MEAN CORPUSCULAR HEMOGLOBIN 24.8 pg (29.0-33.0); MEAN CORPUSCULAR HGB CONC 32.9 g/dl (32.0-37.0); MEAN CORPUSCULAR VOLUME 75.4 fl (82.0-101.0); MEAN PLATELET VOLUME 9.5 fl (7.4-10.4); MONOCYTE # 0.4 10^3/ul (0.3-0.9); MONOCYTES % 4.8 % (0.0-11.0); NEUTROPHILS % 72.9 % (39.0-77.0); PLATELET COUNT 264 10^3/UL (140-415); RED BLOOD COUNT 5.16 10^6/ul (4.70-6.10); RED CELL DISTRIBUTION WIDTH 14.8 % (11.5-14.5); WHITE BLOOD COUNT 8.2 10^3/ul (4.8-10.8)
[2017-03-30 10:37] LABS: ALBUMIN 4.3 g/dl (3.3-4.9); ALBUMIN/GLOBULIN RATIO 1.79; BILIRUBIN,INDIRECT 0.5 mg/dl (0-1.1); BILIRUBIN,TOTAL 0.5 mg/dl (0.2-1.3); CALCIUM 9.3 mg/dl (8.4-10.2); CREATININE 0.98 mg/dl (0.61-1.24); MAGNESIUM 1.8 mg/dl (1.7-2.5); POTASSIUM 4.3 mmol/L (3.5-5.1); TOTAL PROTEIN 6.7 g/dl (6.1-8.1)
== END 2017-03-30 15:23 | disposition home or self-care (01) | DRG 202 ==
LOC: E/R 16:01 → MS4 20:24 → MERGE 20:24 → MS4 23:01
PROVIDERS: ADMIT Family Medicine; ATTEND Family Medicine
PROC: 5A09357 Assistance with Respiratory Ventilation, Less than 24 Consecutive Hours, Continuous Positive Airway Pressure (ICD-10-PCS; principal; 2017-03-28)
PROC: 4A033R1 Measurement of Arterial Saturation, Peripheral, Percutaneous Approach (ICD-10-PCS; 2017-03-28)
DX: J45.901 Unspecified asthma with (acute) exacerbation (principal); E87.2 Acidosis; F17.210 Nicotine dependence, cigarettes, uncomplicated; Z87.01 Personal history of pneumonia (recurrent); F12.90 Cannabis use, unspecified, uncomplicated; F14.90 Cocaine use, unspecified, uncomplicated
CPT/HCPCS: 36600; 71010; 71250; 80048; 80053; 80306; 80307; 82803; 82962; 83036; 83735; 84484; 85025; 87400; 93005; 94640; 94644; 94645; 94660; 94664; J2920; J2930; J3475; J7030; J7512

== ENCOUNTER 2017-07-11 16:09 | Emergency (ER) | payer BC ==
[~2017-07-11] VITALS: Wt 79.5 kg
[~2017-07-11 16:09] MED LIST changes: -ADV25050 INH; +ADV25050 INHALATION; +ALBU2.5V3 NEB; -PRED10TA PO; +PRED20TA PO; -RTPRO5 NEB
[2017-07-11] MEDS ORDERED: ALBUTEROL 0.5% (NEB) 2.5 MG/0.5 ML AMP INH STA (16:30)
[2017-07-11] MEDS ORDERED: IPRATROPIUM (NEB) 0.5 MG/2.5 ML AMP INH STA (16:30)
[2017-07-11] MEDS ORDERED: predniSONE 20 MG TAB PO STA (16:30)
--- NOTE | 2017-07-11 16:35 | ERD ---
ER Documentation Chief Complaint Chief Complaint sob, hx of asthma, labored and tripoding in triage HPI This is a 41-year-old male with a history of asthma, tobacco abuse who is presenting with shortness of breath and wheezing for 1 day. He has been using his albuterol inhaler with only minimal relief of his shortness of breath and wheezing. He is not sure what started it yesterday, but it has been getting progressively worse. He does not endorse any chest pain, but he does state that he started to have chest tightness this morning. The patient denies feeling sick recently. Not been around any sick contacts. The patient denies fever or chills. He has no congestion or rhinorrhea. He has no cough. The patient has had no headache or vision changes. The patient does not endorse neck or back pain. The patient denies lightheadedness or dizziness. The patient denies nausea or vomiting. The patient denies abdominal pain or changes to bowel movements or urination. The patient has had no focal deficits. The patient has had no weakness or numbness or tingling to the face or extremities. ROS All systems reviewed and are negative except as per history of present illness. Medications Home Meds Active Scripts Albuterol Sulfate* (Albuterol Sulfate* Neb) 0.083%-3 Ml Neb, 1.25 MG NEB Q3H Y for WHEEZING AND SOB, #30 VIAL Prov:BRENT BRAY MD 03/30/17 Prednisone* (Prednisone*) 20 Mg Tab, 40 MG PO DAILY for 4 Days, #4 TAB Prov:BRENT BRAY MD 03/30/17 Albuterol Sulfate* (Proair HFA*) 8.5 Gm Hfa.aer.ad, 2 PUFF INH QID Y for WHEEZING AND SOB, #1 INHALER Prov:BRENT BRAY MD 03/30/17 Montelukast Sodium* (Montelukast Sodium*) 10 Mg Tablet, 10 MG PO QHS, #30 TAB Prov:BRENT BRAY MD 03/30/17 Salmeterol Xinaf/Fluticasone* (Advair*) 250-50 Diskus Inhaler, 1 INH INHALATION BID for 30 Days, #1 INHALER Prov:BRENT BRAY MD 03/30/17 Allergies Allergies: Coded Allergies: No Known Drug Allergies (Verified Allergy, Unknown, 02/19/16) tuna oil (Verified Allergy, Unknown, SOB, HIVES, ITCHINESS, 03/29/17) PMhx/Soc History of Surgery: No Anesthesia Reaction: No Hx Neurological Disorder: No Hx Respiratory Disorders: Yes (asthma; hx: bronchitis then PNA) Hx Cardiac Disorders: No Hx Psychiatric Problems: No Hx Miscellaneous Medical Probl: No Hx Alcohol Use: Yes (often) Hx Tobacco Use: Yes FmHx Family History: No diabetes Physical Exam Vitals Vital Signs Date Time Temp Pulse Resp B/P Pulse Ox O2 Delivery O2 Flow Rate FiO2 07/11/17 16:44 2.0 07/11/17 16:44 100 21 99 Nasal Cannula 2.0 07/11/17 16:36 Nasal Cannula 2 07/11/17 16:14 97.8 111 16 138/98 96 Physical Exam Const: No apparent distress, well-developed, well-nourished Head: Normocephalic, Atraumatic Eyes: Normal Conjunctiva. Extraocular movements intact. Pupils equal, round and reactive to light ENT: Normal External Ears, Nose and Mouth. Neck: Full range of motion. No meningismus. Resp: Diffuse wheezes, no rales or rhonchi Cardio: Regular rhythm. + Mild tachycardia. No murmurs, rubs or gallops Abd: Soft, non tender, non distended. Normal bowel sounds Skin: No petechiae or rashes Back: No midline tenderness. No CVA tenderness Ext: No cyanosis, or edema Neur: Awake and alert, oriented 4. Cranial nerves intact. No facial droop. Normal strength, sensation and coordination. Psych: Normal Mood and Affect Results 24 hrs Current Medications Medications (Trade) Dose Ordered Sig/Rylie Route PRN Reason Start Time Stop Time Status Last Admin Dose Admin Ipratropium [place] (Atrovent 0.02% (Neb)) 1.5 mg ONCE STAT INH 07/11/17 16:30 07/11/17 16:32 DC 07/11/17 16:44 Albuterol (Proventil 0.5% (Neb)) 15 mg ONCE STAT INH 07/11/17 16:30 07/11/17 16:32 DC 07/11/17 16:44 Prednisone (Prednisone) 60 mg ONCE STAT PO 07/11/17 16:30 07/11/17 16:32 DC 07/11/17 16:57 Procedures/[facility] MDM The patient's presentation warrants further investigation. The patient has findings of an acute asthma exacerbation. The patient's vital signs aside from slight tachycardia are unremarkable. The patient does not endorse any pain. I suspect that his tachycardia is related to his use of albuterol at home. The patient does not have findings consistent with an infectious etiology. EKG EKG read by me: Rate/Rhythm: Regular rate, sinus arrhythmia at a rate of 97 Intervals: Normal [place]: Right shifted Impression: Sinus arrhythmia, no evidence of acute ischemia IMAGING CXR The heart is normal in size. The pulmonary vessels are normal in caliber. The lungs are clear. The costophrenic angles are sharp. The visualized bony thorax is unremarkable. No acute cardiopulmonary disease. Electronically viewed and signed by .Rishi Barrett MD, on 07/11/2017 16:46 TREATMENT/DISPOSITION The patient was given a dose of prednisone in addition to nebulized treatments of albuterol and ipratropium. The patient did still have some mild wheezing, but he had more full breath sounds which were symmetric. I do not see evidence of pneumonia. I have low suspicion for a bacterial infection, and I do not believe he requires antibiotics at this time. The patient feels improved at this time and would like to go home. I feel at this time that that is appropriate. The patient did have tachycardia in the emergency department after receiving an hour of albuterol. He does not endorse any chest pain or pleuritic pain. He has not had any recent travel. He is not on any hormonal medications. He has not had any recent surgeries. He has not been bedbound for any reason. He has a more likely etiology in his asthma/COPD exacerbation. I have low suspicion for PE. Given his reassuring EKG, I have low suspicion for acute coronary syndrome. At this time, I feel that the patient stable for discharge. The patient will be given a prescription for steroids. He will need to utilize puffs of his albuterol nebulizer every 4 hours for the next 2 days. After 2 days, he may use it as prescribed. The patient expressed understanding of this. The patient will need follow-up with his primary care physician in 2-3 days. The patient will be given strict precautions with which to return to the emergency department. The patient's blood pressure was elevated at greater than 120/80 while in the emergency department. The patient was otherwise stable with no evidence of hypertensive urgency or emergency or end organ damage. The patient does not require admission for blood pressure control. I have discussed with the patient the risks of hypertension. I have advised the patient to follow up with the primary care physician for outpatient monitoring and treatment for hypertension in 2-3 days. I have instructed the patient to return to the ER for any new or worsening symptoms including chest pain, shortness of breath, headache, blurred vision, confusion, nausea, vomiting or LOC. Disclaimer: Inadvertent spelling and grammatical errors are likely due to EHR/ dictation software use and do not reflect on the overall quality of patient care. Note that the electronic time recorded on this note does not necessarily reflect the actual time of the patient encounter. Departure Diagnosis: Primary Impression: Asthma exacerbation Asthma severity: moderate Asthma persistence: unspecified Qualified Code: J45.901 - Moderate asthma with exacerbation, unspecified whether persistent Additional Impressions: Shortness of breath Wheezing Condition: Stable CHERY JC MD Jul 11, 2017 16:35
--- NOTE | 2017-07-11 16:46 | RADRPT ---
PROCEDURE: Chest x-ray CLINICAL INDICATION: Shortness of breath TECHNIQUE: Chest single view COMPARISON: 02/19/2016 FINDINGS: The heart is normal in size. The pulmonary vessels are normal in caliber. The lungs are clear. Th e costophrenic angles are sharp. The visualized bony thorax is unremarkable. IMPRESSION: No acute cardiopulmonary disease. RPTAT: HH .Rishi Barrett MD, MD Date Time Electronically viewed and signed by .Rishi Barrett MD, MD on 07/11/2017 16:46 .W/
[2017-07-11 18:30] VITALS: BP 110/99; PULSE 120; RESP 20
[2017-07-11] MEDS ORDERED: PRED20TA PO (18:40)
[2017-07-11] MEDS ORDERED: ALBU18HF INHALATION (18:40)
== END 2017-07-11 18:51 | disposition home or self-care (01) ==
LOC: E/R 16:09
DX: J45.901 Unspecified asthma with (acute) exacerbation (principal); Z87.891 Personal history of nicotine dependence
CPT/HCPCS: 71010; 93005; 94644; 99284; J7512

== ENCOUNTER 2017-08-28 23:25 | Inpatient (IN) | END 2017-08-30 16:20 | disposition home or self-care (01) | DRG 203 ==

== ENCOUNTER 2018-02-20 12:04 | Inpatient (IN) | END 2018-02-23 12:30 | disposition home or self-care (01) | DRG 191 ==

== ENCOUNTER 2018-10-31 18:29 | Inpatient (IN) | payer BC ==
[~2018-10-31] VITALS: Ht 165.1 cm; Wt 60.2 kg
[~2018-10-31 18:29] MED LIST changes: -ALBU8.5H3 INH; +ALBU8.5H8 INH; +MED4DP PO; -MONT10TA24 PO; -PRED20TA PO; +Work Note
[2018-10-31] MEDS ORDERED: IPRATROPIUM (NEB) 0.5 MG/2.5 ML AMP INH STA ×2 (19:18→21:20)
[2018-10-31] MEDS ORDERED: ALBUTEROL 0.5% (NEB) 2.5 MG/0.5 ML AMP INH STA ×2 (19:18→21:20)
[2018-10-31] MEDS ORDERED: DEXAMETHASONE 10 MG/ML 1 ML INJ IV STA (19:18)
[2018-10-31] MEDS ORDERED: MAGNESIUM SULFATE 2 GM/50 ML 50 ML IVPB STA (21:20)
[2018-10-31] MEDS ORDERED: ONDANSETRON 4 MG INJ IV PRN (23:30)
[2018-10-31] MEDS ORDERED: ACETAMINOPHEN 325 MG TAB PO PRN (23:30)
[2018-11-01] VITALS (12 sets, daily range): BP systolic 127–142; BP diastolic 79–94; PULSE 80–106; RESP 16–20; Ht 165.1 cm; Wt 60.2 kg
--- NOTE | 2018-11-01 00:10 | ERD ---
ER Documentation Chief Complaint Chief Complaint shortness of breath x 2 days HPI 43-year-old male with a history of asthma presenting with shortness of breath worsening over the past 2 days. Patient has been hospitalized in the past for his asthma. He denies any recent illness. He was ill about 1 month ago but that improved. He has associated chest tightness that is worse with deep inspiration. Otherwise history is limited as the patient is in respiratory distress. No recent fevers or chills. ROS Limited due to respiratory distress Medications Home Meds Active Scripts [Work Note] No Conflict Check This is to certify that the patient was admitted to [facility] from 09/25/2018 to 09/27/2018. The patient can return back to work on 10/01/2018 with no restrictions. Prov:TERRY HERNANDES NP 09/27/18 Salmeterol Xinaf/Fluticasone* (Advair*) 250-50 Diskus Inhaler, 1 INH INHALATION BID, #1 INHALER Prov:TERRY HERNANDES NP 09/27/18 Albuterol Sulfate* (Albuterol Sulfate* Neb) 0.083%-3 Ml Neb, 1.25 MG NEB Q3H PRN for WHEEZING AND SOB, #30 VIAL Prov:TERRY HERNANDES NP 09/27/18 Methylprednisolone* (Medrol* DOSE PACK) 4 Mg/Dose-Pack Tab.ds.pk, 4 MG PO . DIRECTED, #1 PACKET Prov:TERRY HERNANDES NP 09/27/18 Albuterol Sulfate* (Proair HFA*) 8.5 Gm Hfa.aer.ad, 2 PUFF INH Q4H PRN for WHEEZING AND SOB, #1 INHALER 3 Refills Prov:LYNDSAY GARZA 02/23/18 Allergies Allergies: Coded Allergies: tuna oil (Verified Allergy, Unknown, SOB, HIVES, ITCHINESS, 10/31/18) PMhx/Soc History of Surgery: No Anesthesia Reaction: No Hx Neurological Disorder: No Hx Respiratory Disorders: Yes Hx Cardiac Disorders: No Hx Psychiatric Problems: No Hx Miscellaneous Medical Probl: Yes (ASTHMA ) Hx Alcohol Use: Yes Hx Substance Use: Yes (MARIJUANA,COCAIN) Hx Tobacco Use: Yes Smoking Status: Former smoker FmHx Unable to obtain Physical Exam Vitals Vital Signs Date Temp Pulse Resp B/P (MAP) Pulse Ox O2 O2 Flow FiO2 Time Delivery Rate 10/31/18 120 24 115/90 97 Room Air 23:58 (98) 10/31/18 120 26 128/89 99 5.0 22:27 (102) 10/31/18 117 24 98 Nasal 3.0 21:29 Cannula 10/31/18 3.0 19:36 10/31/18 114 22 98 Nasal 3.0 19:35 Cannula 10/31/18 Nasal 3.0 19:33 Cannula 10/31/18 Nasal 3 19:33 Cannula 10/31/18 98.2 118 16 159/82 91 18:39 (107) Physical Exam Const: In significant respiratory distress, speaking in very short sentences Head: Atraumatic Eyes: Normal Conjunctiva ENT: Normal External Ears, Nose and Mouth. Neck: Full range of motion. No meningismus. Resp: Tachypneic. Diminished breath sounds bilaterally with expiratory wheezing. No rales or rhonchi Cardio: Tachycardic with regular rhythm, no murmurs Abd: Soft, non tender, non distended. Normal bowel sounds Skin: No petechiae or rashes Back: No midline or flank tenderness Ext: No cyanosis, or edema Neur: Awake and alert Psych: Normal Mood and Affect Result Diagram: 10/31/18222010/31/181 Results 24 hrs Laboratory Tests Test 10/31/18 22:21 10/31/18 22:49 White Blood Count 13.7 10^3/ul Red Blood Count 5.92 10^6/ul Hemoglobin 14.5 g/dl Hematocrit 45.0 % Mean Corpuscular Volume 76.0 fl Mean Corpuscular Hemoglobin 24.5 pg Mean Corpuscular Hemoglobin Concent 32.2 g/dl Red Cell Distribution Width 14.0 % Platelet Count 318 10^3/UL Mean Platelet Volume 8.9 fl Immature Granulocytes % 0.700 % Neutrophils % 93.9 % Lymphocytes % 3.2 % Monocytes % 0.6 % Eosinophils % 1.1 % Basophils % 0.5 % Nucleated Red Blood Cells % 0.0 /100WBC Immature Granulocytes # 0.100 10^3/ul Neutrophils # 12.8 10^3/ul Lymphocytes # 0.4 10^3/ul Monocytes # 0.1 10^3/ul Eosinophils # 0.2 10^3/ul Basophils # 0.1 10^3/ul Nucleated Red Blood Cells # 0.0 10^3/ul Sodium Level 139 mmol/L Potassium Level 4.2 mmol/L Chloride Level 107 mmol/L Carbon Dioxide Level 23 mmol/L Anion Gap 9 Blood Urea Nitrogen 12 mg/dl Creatinine 0.83 mg/dl Est Glomerular Filtrat Rate mL/min > 60 mL/min Glucose Level 178 mg/dl Calcium Level 9.3 mg/dl Troponin I < 0.012 ng/ml Blood Gas Specimen Source Blood venous Arterial Blood Date Drawn 10/31/2018 11:50:05 PM Arterial Blood Gas Puncture Site VENOUS LINE [place] Test N/A Venous Blood pH 7.343 Venous Blood pCO2 (Temp Corrected) 44.3 mmHG Venous Blood pO2 (Temp Corrected) 56.9 mmHG Venous Blood HCO3 23.5 mmol/L Venous Blood Oxygen Saturation 87.2 mmHG Venous Blood Base Excess -2.3 mmol/L Venous Blood Total Hemoglobin 16.0 g/dl Venous Blood Oxyhemoglobin 86.8 % Venous Blood Methemoglobin 0.3 % Carboxyhemoglobin 0.2 % Blood Gas Temperature 37.0 C Blood Gas Modality ROOM AIR FiO2 27.0 % Blood Gas Notified Whom MG Blood Gas Notified Time 10/31/2018 11:57:06 PM Current Medications Medications Dose Sig/Rylie Start Time Status Last (Trade) Ordered Route PRN Stop Time Admin Dose Reason Admin Albuterol 10 mg ONCE STAT 10/31/18 DC 10/31/18 (Proventil INH 19:18 19:35 0.5% (Neb)) 10/31/18 19:20 Ipratropium 1 mg ONCE STAT 10/31/18 DC 10/31/18 [place] INH 19:18 19:34 (Atrovent 10/31/18 19:20 0.02% (Neb)) 10 mg ONCE STAT 10/31/18 DC 10/31/18 Dexamethasone IV 19:18 19:26 (Decadron) 10/31/18 19:20 Albuterol 10 mg ONCE STAT 10/31/18 DC 10/31/18 (Proventil INH 21:20 21:29 0.5% (Neb)) 10/31/18 21:21 Ipratropium 1 mg ONCE STAT 10/31/18 DC 10/31/18 [place] INH 21:20 21:29 (Atrovent 10/31/18 21:21 0.02% (Neb)) Magnesium 50 ml @ 25 ONCE STAT 10/31/18 DC 10/31/18 Sulfate mls/hr IVPB 21:20 21:37 10/31/18 23:19 Ondansetron 4 mg ER BRIDGE 10/31/18 HCl (Zofran PRN IV 23:30 Inj) NAUSEA/VOMITI 11/01/18 23:29 NG 650 mg ER BRIDGE 10/31/18 Acetaminophen PRN PO 23:30 (Tylenol .MILD PAIN 11/01/18 23:29 Tab) 1-3 OR TEMP IV Flush 3 ml PER 11/01/18 (NS 3 ml) PROTOCOL IV 00:30 Ondansetron 4 mg Q6H PRN 11/01/18 HCl (Zofran IV 00:30 Inj) NAUSEA/VOMITI NG 60 mg DAILY IV 11/01/18 Methylprednis 09:00 olone Sodium Succinate (Solu-Medrol) 650 mg Q6H PRN 11/01/18 Acetaminophen PO .PAIN 1-3 00:30 (Tylenol OR TEMP Tab) Heparin 5,000 unit Q12 SC 11/01/18 Sodium 09:00 (Porcine) (Heparin (5000 Units/1ml)) Ipratropium 0.5 mg Q3H RESP 11/01/18 [place] THERAPY PRN 00:30 (Atrovent NEB 0.02% sob/wheezing/ (Neb)) hypoxia 1 inh BID 11/01/18 UNV Miscellaneous INHALATION 00:30 Information 0.63 mg Q3H RESP 11/01/18 Levalbuterol THERAPY PRN 00:30 (Xopenex HHN Neb) sob/wheezing/ hypoxia Procedures/MDM EMERGENT LABS AND DIAGNOSTIC STUDIES: Lab Results above were reviewed and interpreted by me. CBC: Mild leukocytosis, likely stress response. No anemia BMP: No evidence of electrolyte abnormality, renal failure, hypoglycemia Troponin within normal limits, not indicative of cardiac ischemia 12-lead EKG was interpreted by Nuvia Wilson MD: Sinus tachycardia with ventricular rate of 119 beats per minute Normal axis Normal intervals No acute ST or T wave changes suggestive of acute ischemia or STEMI. Radiology Results as interpreted by Radiology below were reviewed by Dav Wilson MD: Chest x-ray shows hyperinflation, no acute infiltrate or pneumothorax Initial Nursing notes reviewed. Previous Medical Records requested via the Electronic Health Record. EMERGENCY DEPARTMENT COURSE / MEDICAL DECISION MAKING: Patient is presenting with respiratory distress and hypoxia on room air. He was given IV steroids and continuous albuterol and Atrovent treatments. Lower suspicion for acute coronary syndrome, pulmonary embolism, pneumothorax, sepsis, pneumonia. Patient's respiratory symptoms have not responded to multiple continuous albuterol treatments in the ER and will require inpatient workup, monitoring, and treatment. Critical Care Time: 50 minutes Treatments/Evaluations: Close monitoring and treatment of unstable vital signs, cardiorespiratory, and neurologic status, while maintaining tight balance of fluid, respiratory, and cardiac interventions. This time includes discussing the case with the patient and the patients family. This time does not include all procedures stated elsewhere in this record. This time also includes reviewing old records, labs and radiological studies. This time includes examining and re- examining the patient. Additionally, this time also includes arranging care with admitting and consulting physicians. Accepting Care Team: Current data and ongoing care discussed. Time: Time of admission Primary Provider: Dr. Monsivais Consulting: Outstanding Data: none Departure Diagnosis: Primary Impression: Acute respiratory failure Respiratory failure complication: hypoxia Qualified Codes: J96.01 - Acute respiratory failure with hypoxia Additional Impression: Asthma, severe persistent, poorly-controlled Asthma complication type: with status asthmaticus Qualified Codes: J45.52 - Severe persistent asthma with status asthmaticus Condition: Serious DIMAS WILSON MD Nov 01, 2018 00:10
[2018-11-01] MEDS ORDERED: LEVALBUTEROL (NEB) 0.63 MG/3 ML AMP HHN PRN (00:30)
[2018-11-01] MEDS ORDERED: NON-FORMULARY/PATIENT OWN MED (Salmeterol Xinaf/Fluticasone* (Advair*) 1 INH) INHALATION SCH (00:30)
[2018-11-01] MEDS ORDERED: IPRATROPIUM (NEB) 0.5 MG/2.5 ML AMP NEB PRN (00:30)
[2018-11-01] MEDS ORDERED: ONDANSETRON 4 MG INJ IV PRN (00:30)
[2018-11-01] MEDS ORDERED: NACL 0.9% 3 ML SYG IV SCH (00:30)
[2018-11-01] MEDS ORDERED: ACETAMINOPHEN 325 MG TAB PO PRN (00:30)
--- NOTE | 2018-11-01 04:30 | HP ---
Date/Time of Note Date/Time of Note DATE: 11/01/18 TIME: 04:28 Assessment/Plan VTE Prophylaxis Pharmacological prophylaxis: heparin Lines/Catheters IV Catheter Type (from Nrs): Saline Lock Assessment/Plan Assessment/Plan 1. COPD exacerbation -Supplemental oxygen, bronchodilators, steroid 2. SIRS: As evidenced by leukocytosis and tachycardia -Chest x-ray not diagnostic for pneumonia -Follow-up culture results Result Diagram: 10/31/18 2221 10/31/18 2221 Results 24hrs Laboratory Tests Test 10/31/18 22:21 10/31/18 22:49 White Blood Count 13.7 H Red Blood Count 5.92 Hemoglobin 14.5 Hematocrit 45.0 Mean Corpuscular Volume 76.0 L Mean Corpuscular Hemoglobin 24.5 L Mean Corpuscular Hemoglobin Concent 32.2 Red Cell Distribution Width 14.0 Platelet Count 318 # Mean Platelet Volume 8.9 Immature Granulocytes % 0.700 H Neutrophils % 93.9 H Lymphocytes % 3.2 L Monocytes % 0.6 Eosinophils % 1.1 Basophils % 0.5 Nucleated Red Blood Cells % 0.0 Immature Granulocytes # 0.100 H Neutrophils # 12.8 H Lymphocytes # 0.4 L Monocytes # 0.1 L Eosinophils # 0.2 Basophils # 0.1 Nucleated Red Blood Cells # 0.0 Sodium Level 139 Potassium Level 4.2 Chloride Level 107 Carbon Dioxide Level 23 Anion Gap 9 Blood Urea Nitrogen 12 Creatinine 0.83 Est Glomerular Filtrat Rate mL/min > 60 Glucose Level 178 Calcium Level 9.3 Troponin I < 0.012 Blood Gas Specimen Source Blood venous Arterial Blood Date Drawn 10/31/2018 11:50:05 PM Arterial Blood Gas Puncture Site VENOUS LINE [place] Test N/A Venous Blood pH 7.343 Venous Blood pCO2 (Temp Corrected) 44.3 Venous Blood pO2 (Temp Corrected) 56.9 H Venous Blood HCO3 23.5 Venous Blood Oxygen Saturation 87.2 H Venous Blood Base Excess -2.3 Venous Blood Total Hemoglobin 16.0 Venous Blood Oxyhemoglobin 86.8 Venous Blood Methemoglobin 0.3 Carboxyhemoglobin 0.2 Blood Gas Temperature 37.0 Blood Gas Modality ROOM AIR FiO2 27.0 Blood Gas Notified Whom MG Blood Gas Notified Time 10/31/2018 11:57:06 PM HPI/ROS Admit Date/Time Admit Date/Time Oct 31, 2018 at 23:06 Hx of Present Illness This is a 43-year-old male with a history of COPD who presented to ER complaining of shortness of breath for the past 3 days. When presented to ER, patient was using accessory muscles. He was initially tachycardic with a heart rate of 118. Chest x-ray shows hyperinflated lungs. He was admitted here last month for COPD. PMH/Family/Social Past Medical History Past Surgical History Past Surgical Hx: other (see hpi) Family History Significant Family History: no pertinent family hx Social History Alcohol Use: other Smoking Status: Unknown if ever smoked Drug Use: other Exam Constitutional: other (no acute distress) Eyes: PERRL ENMT: nl external ears & nose Neck: supple Respiratory: normal air movement Cardiovascular: nl pulses Gastrointestinal: soft Extremities: normal pulses Medications Current Medications Ondansetron HCl (Zofran Inj) 4 mg ER BRIDGE PRN IV NAUSEA/VOMITING; Start 10/31/18 at 23:30; Stop 11/01/18 at 23:29 Acetaminophen (Tylenol Tab) 650 mg ER BRIDGE PRN PO .MILD PAIN 1-3 OR TEMP; Start 10/31/18 at 23:30; Stop 11/01/18 at 23:29 IV Flush (NS 3 ml) 3 ml PER PROTOCOL IV ; Start 11/01/18 at 00:30 Ondansetron HCl (Zofran Inj) 4 mg Q6H PRN IV NAUSEA/VOMITING; Start 11/01/18 at 00:30 Methylprednisolone Sodium Succinate (Solu-Medrol) 60 mg DAILY IV ; Start 11/01/18 at 09:00 Acetaminophen (Tylenol Tab) 650 mg Q6H PRN PO .PAIN 1-3 OR TEMP; Start 11/01/18 at 00:30 Heparin Sodium (Porcine) (Heparin (5000 Units/1ml)) 5,000 unit Q12 SC ; Start 11/01/18 at 09:00 Ipratropium [place] (Atrovent 0.02% (Neb)) 0.5 mg Q3H RESP THERAPY PRN NEB so b/wheezing/hypoxia; Start 11/01/18 at 00:30 Miscellaneous Information 1 inh BID INHALATION ; Start 11/01/18 at 00:30; Status UNV Levalbuterol (Xopenex Neb) 0.63 mg Q3H RESP THERAPY PRN HHN sob/wheez ing/hypoxia; Start 11/01/18 at 00:30 Coded Allergies: tuna oil (Verified Allergy, Unknown, SOB, HIVES, ITCHINESS, 10/31/18) Past Surgical History Past Surgical Hx: no surgical history Family History Significant Family History: no pertinent family hx Social History Smoking Status: Former smoker Exam/Review of Systems Vital Signs Vitals Vital Signs Date Temp Pulse Resp B/P (MAP) Pulse Ox O2 O2 Flow FiO2 Time Delivery Rate 11/01/18 97.9 97 20 135/92 97 Nasal 3.0 02:30 (106) Cannula YAMILKA BRODERICK MD Nov 01, 2018 04:30
[2018-11-01] MEDS: HEPARIN 5,000 UNIT/1 ML VIAL SC SCH ×2 (08:31→20:54)
[2018-11-01] MEDS ORDERED: METHYLPREDNISOLONE 125 MG INJ IV SCH (09:00)
[2018-11-01] MEDS ORDERED: FLUTICASONE/VILANTEROL 100-25 INH SCH (09:00)
[2018-11-01] MEDS ORDERED: ALBUTEROL/IPRATROPIUM (NEB) 3 ML AMP HHN PRN (10:00)
[2018-11-01] MEDS: BUDESONIDE (NEB) 0.5MG/2ML AMP HHN SCH ×2 (14:20→20:57)
[2018-11-01] MEDS: ALBUTEROL/IPRATROPIUM (NEB) 3 ML AMP HHN SCH ×2 (14:20→20:57)
--- NOTE | 2018-11-01 15:01 | PN ---
Date/Time of Note Date/Time of Note DATE: 11/01/18 TIME: 15:01 Objective Vitals Vital Signs Date Temp Pulse Resp B/P (MAP) Pulse Ox O2 O2 Flow FiO2 Time Delivery Rate 11/01/18 96 21 14:31 11/01/18 86 16 14:30 11/01/18 Nasal 3.0 08:13 Cannula 11/01/18 98.3 139/94 07:45 (109) Intake and Output 10/31/18 10/31/18 11/01/18 1414:59 22:59 06:59 IntakeIntake Total 240 ml BalanceBalance 240 ml Results Result Diagram: 11/01/18 0545 11/01/18 0545 Medications Medications Current Medications Ondansetron HCl (Zofran Inj) 4 mg ER BRIDGE PRN IV NAUSEA/VOMITING; Start 10/31/18 at 23:30; Stop 11/01/18 at 23:29 Acetaminophen (Tylenol Tab) 650 mg ER BRIDGE PRN PO .MILD PAIN 1-3 OR TEMP; Start 10/31/18 at 23:30; Stop 11/01/18 at 23:29 IV Flush (NS 3 ml) 3 ml PER PROTOCOL IV ; Start 11/01/18 at 00:30 Ondansetron HCl (Zofran Inj) 4 mg Q6H PRN IV NAUSEA/VOMITING; Start 11/01/18 at 00:30 Acetaminophen (Tylenol Tab) 650 mg Q6H PRN PO .PAIN 1-3 OR TEMP; Start 11/01/18 at 00:30 Heparin Sodium (Porcine) (Heparin (5000 Units/1ml)) 5,000 unit Q12 SC Last administered on 11/01/18at 08:31; Admin Dose 5,000 UNIT; Start 11/01/18 at 09:00 Ipratropium [place] (Atrovent 0.02% (Neb)) 0.5 mg Q3H RESP THERAPY PRN NEB sob/wheezing/hypoxia; Start 11/01/18 at 00:30 Levalbuterol (Xopenex Neb) 0.63 mg Q3H RESP THERAPY PRN HHN sob/wheezing/hypoxia; Start 11/01/18 at 00:30 Methylprednisolone Sodium Succinate (Solu-Medrol) 40 mg BID IV ; Start 11/01/18 at 21:00 Albuterol/ Ipratropium (Duoneb) 3 ml Q6HWA RESP THERAPY HHN Last administered on 11/01/18at 14:20; Admin Dose 3 ML; Start 11/01/18 at 14:00 Albuterol/ Ipratropium (Duoneb) 3 ml Q2H RESP THERAPY PRN HHN shortness of breath; Start 11/01/18 at 10:00 Budesonide (Pulmicort (Neb)) 0.5 mg BID RESP THERAPY HHN Last administered on 11/01/18at 14:20; Admin Dose 0.5 MG; Start 11/01/18 at 10:00 Montelukast Sodium (Singulair) 10 mg HS PO ; Start 11/01/18 at 21:00 Azithromycin 250 ml @ 250 mls/hr Q24H IVPB ; Start 11/01/18 at 15:00; Status UNV VTE Prophylaxis Risk score (from [facility])>0 risk: 2 SCD applied (from [facility]): Yes Lines/Catheters IV Catheter Type: Chaney in Place: No Assessment/Plan Hospital Course Short progress note as history and physical was done earlier today. Patient still wheezing however feeling better, continue steroids, DuoNeb, budesonide, adding Singulair and azithromycin more so for anti-inflammatory reasons instead of pneumonia reasons but will also help for the patient's SIRS. Patient likely discharge tomorrow. SHARRI CALVIN Nov 01, 2018 15:01
[2018-11-01] MEDS ORDERED: AZITHROMYCIN 500MG/NS (PMX) 250 ML IVPB SCH (16:00)
[2018-11-01] MEDS: METHYLPREDNISOLONE 40 MG INJ IV SCH (20:47)
[2018-11-01] MEDS ORDERED: MONTELUKAST 10 MG TAB PO SCH (21:00)
[2018-11-02] VITALS (7 sets, daily range): BP systolic 121–126; BP diastolic 69–81; PULSE 75–98; RESP 16–19
[2018-11-02] MEDS: ALBUTEROL/IPRATROPIUM (NEB) 3 ML AMP HHN SCH ×2 (07:49→14:12)
[2018-11-02] MEDS: METHYLPREDNISOLONE 40 MG INJ IV SCH (08:51)
[2018-11-02] MEDS: BUDESONIDE (NEB) 0.5MG/2ML AMP HHN SCH (09:00)
[2018-11-02] MEDS: HEPARIN 5,000 UNIT/1 ML VIAL SC SCH (09:56)
[2018-11-02] MEDS ORDERED: ALBU8.5H8 INH (12:13)
[2018-11-02] MEDS ORDERED: MONT10TA24 PO (12:13)
[2018-11-02] MEDS ORDERED: MED4DP PO (12:13)
[2018-11-02] MEDS ORDERED: ADV25050 INHALATION (12:13)
[2018-11-02] MEDS ORDERED: AZIT250T13 PO (12:16)
--- NOTE | 2018-11-02 12:18 | PDOCDIS ---
Discharge Instructions CONDITION [id number] Patient Condition: [id number] Stable FOLLOW UP/APPOINTMENTS Follow-up Plan Please follow-up with your primary care provider as soon as possible in order to reassess your worsening asthma and frequent exacerbations. Please ask for a pulmonology referral SHARRI CALVIN Nov 02, 2018 12:18
--- NOTE | 2018-11-02 12:21 | DS ---
Date/Time of Note Date/Time of Note DATE: 11/02/18 TIME: 12:21 Discharge Summary Admission/Discharge Info Admit Date/Time Oct 31, 2018 at 23:06 Discharge Date/Time Patient Condition: Stable Hospital Course Patient is a male with a past medical history significant for asthma or COPD who presents to [facility] for shortness of breath for the past 3 days. 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 Patient feels well however was treated inpatient for asthma or COPD exacerbation. Patient continued to improve and will now be discharged with appropriate refills of his inhalers as well as a new Singulair oral and a short course of antibiotics for decreasing inflammation and a short course of anahi roids. Patient was started on Singulair as he has had more than 1 hospitalization in the past few months is likely not optimized. Patient was told to get a referral to a grip boss from his primary care provider as soon as possible. Patient's mild elevation in white count on day of discharge is very minimal, and likely secondary to IV steroids as patient has no other signs of acute infection. Discharge diagnosis COPD\asthma exacerbation SIRS Leukocytosis, very mild Home Meds Active Scripts Azithromycin* (Azithromycin*) 250 Mg Tablet, 250 MG PO DAILY, #4 TAB Prov:SHARRI CALVIN 11/02/18 Montelukast Sodium* (Montelukast Sodium*) 10 Mg Tablet, 10 MG PO HS for 30 Days, #30 TAB 1 Refill Prov:SHARRI CALVIN 11/02/18 Salmeterol Xinaf/Fluticasone* (Advair*) 250-50 Diskus Inhaler, 1 INH INHALATION BID for 30 Days, #1 INHALER 3 Refills Prov:SHARRI CALVIN 11/02/18 Methylprednisolone* (Medrol* DOSE PACK) 4 Mg/Dose-Pack Tab.ds.pk, 4 MG PO . DIRECTED, #1 PACKET Prov:SHARRI CALVIN 11/02/18 Albuterol Sulfate* (Proair HFA*) 8.5 Gm Hfa.aer.ad, 2 PUFF INH Q4H PRN for WHEEZING AND SOB, #1 INHALER 3 Refills Prov:SHARRI CALVIN 11/02/18 Albuterol Sulfate* (Albuterol Sulfate* Neb) 0.083%-3 Ml Neb, 1.25 MG NEB Q3H PRN for WHEEZING AND SOB, #30 VIAL Prov:TERRY HERNANDES [employer]AND RESOURCE SPECIALIST 09/27/18 Discontinued Scripts [Work Note] No Conflict Check This is to certify that the patient was admitted to [facility] from 09/25/2018 to 09/27/2018. The patient can return back to work on 10/01/2018 with no restrictions. Prov:TERRY HERNANDES [employer]AND RESOURCE SPECIALIST 09/27/18 Follow-up Plan Please follow-up with your primary care provider as soon as possible in order to reassess your worsening asthma and frequent exacerbations. Please ask for a pulmonology referral Primary Care Provider Nathan Henson MD Time spent on discharge: > 30 minutes Pending Labs Laboratory Tests Test 11/02/18 05:34 White Blood Count 12.1 10^3/ul (4.8-10.8) Red Blood Count 5.54 10^6/ul (4.70-6.10) Hemoglobin 14.0 g/dl (14.0-18.0) Hematocrit 41.2 % (42.0-52.0) Mean Corpuscular Volume 74.4 fl (82.0-101.0) Mean Corpuscular Hemoglobin 25.3 pg (29.0-33.0) Mean Corpuscular Hemoglobin Concent 34.0 g/dl (32.0-37.0) Red Cell Distribution Width 14.3 % (11.5-14.5) Platelet Count 322 10^3/UL (140-415) Mean Platelet Volume 9.2 fl (7.4-10.4) Immature Granulocytes % 0.600 % (0.001-0.429) Neutrophils % 85.6 % (39.0-77.0) Lymphocytes % 9.5 % (15.0-51.0) Monocytes % 4.2 % (0.0-11.0) Eosinophils % 0.0 % (0.0-7.0) Basophils % 0.1 % (0.0-2.0) Nucleated Red Blood Cells % 0.0 /100WBC (0.0-0.0) Immature Granulocytes # 0.070 10^3/ul (0.0-0.031) Neutrophils # 10.3 10^3/ul (1.6-7.5) Lymphocytes # 1.1 10^3/ul (0.8-2.9) Monocytes # 0.5 10^3/ul (0.3-0.9) Eosinophils # 0.0 10^3/ul (0.0-0.5) Basophils # 0.0 10^3/ul (0.0-0.1) Nucleated Red Blood Cells # 0.0 10^3/ul (0.0-0.0) Sodium Level 136 mmol/L (135-144) Potassium Level 4.2 mmol/L (3.5-5.1) Chloride Level 102 mmol/L (97-110) Carbon Dioxide Level 26 mmol/L (21-31) Anion Gap 8 (5-13) Blood Urea Nitrogen 16 mg/dl (7-20) Creatinine 0.89 mg/dl (0.61-1.24) Est Glomerular Filtrat Rate mL/min > 60 mL/min (>60) Glucose Level 134 mg/dl (70-220) Calcium Level 9.5 mg/dl (8.4-10.2) Phosphorus Level 5.0 mg/dl (2.5-4.9) Magnesium Level 1.9 mg/dl (1.7-2.5) SHARRI CALVIN Nov 02, 2018 12:21
== END 2018-11-02 14:48 | disposition home or self-care (01) | DRG 191 ==
LOC: E/R 18:29 → 6WM 23:06
PROVIDERS: ADMIT Internal Medicine; ATTEND Internal Medicine
PROC: 4A033R1 Measurement of Arterial Saturation, Peripheral, Percutaneous Approach (ICD-10-PCS; principal; 2018-10-31)
DX: J44.1 Chronic obstructive pulmonary disease with (acute) exacerbation (principal); R65.10 Systemic inflammatory response syndrome (SIRS) of non-infectious origin without acute organ dysfunction; J45.51 Severe persistent asthma with (acute) exacerbation; F14.90 Cocaine use, unspecified, uncomplicated; F12.90 Cannabis use, unspecified, uncomplicated; Z87.891 Personal history of nicotine dependence
CPT/HCPCS: 36415; 71045; 80048; 80053; 81003; 82803; 83735; 84100; 84484; 85025; 87040; 87086; 93005; 94640; 94644; 94645; 96374; 96375; J0456; J1100; J1644; J2920; J2930; J3475

== ENCOUNTER 2019-02-18 06:58 | Inpatient (IN) | payer BC ==
[~2019-02-18] VITALS: Ht 165.1 cm; Wt 62.5 kg
[~2019-02-18 06:58] MED LIST changes: +AZIT250T13 PO; +MONT10TA24 PO; -Work Note
[2019-02-18] MEDS ORDERED: METHYLPREDNISOLONE 125 MG INJ ONE (07:06)
[2019-02-18] MEDS ORDERED: IPRATROPIUM (NEB) 0.5 MG/2.5 ML AMP NEB STA (07:06)
[2019-02-18] MEDS ORDERED: ALBUTEROL 0.083% (NEB) 2.5 MG/3 ML AMP NEB STA (07:06)
--- NOTE | 2019-02-18 07:14 | ERD ---
ER Documentation Chief Complaint Chief Complaint SHORTNESS OF BREATH: possble asthma HPI Patient is a 43 years old right lower extremity amputee male with PMHx of Asthma presenting to the clinic for SOB, difficulty breathing, and wheezing since yesterday. Patient reports using Advair without resolution of symptoms. Patient denies cough, fever, chills, chest pain. ROS All systems reviewed and are negative except as per history of present illness. Medications Home Meds Active Scripts Methylprednisolone* (Medrol* DOSE PACK) 4 Mg/Dose-Pack Tab.ds.pk, 4 MG PO . DIRECTED, #1 PACKET Prov:BJ STEARNS [employer] 02/19/19 Albuterol Sulfate* (Albuterol Sulfate* Neb) 0.083%-3 Ml Neb, 2.5 MG NEB Q4H, #60 VIAL Prov:BJ STEARNS NP 02/19/19 Albuterol Sulfate* (Proair HFA*) 8.5 Gm Hfa.aer.ad, 2 PUFF INH Q4H PRN for WHEEZING AND SOB, #1 INHALER Prov:BJ STEARNS NP 02/19/19 Salmeterol Xinaf/Fluticasone* (Advair*) 250-50 Diskus Inhaler, 1 INH INHALATION BID, #1 INHALER Prov:BJ STEARNS NP 02/19/19 Discontinued Scripts Azithromycin* (Azithromycin*) 250 Mg Tablet, 250 MG PO DAILY, #4 TAB Prov:SHARRI CALVIN 11/02/18 Montelukast Sodium* (Montelukast Sodium*) 10 Mg Tablet, 10 MG PO HS for 30 Days, #30 TAB 1 Refill Prov:SHARRI CALVIN 11/02/18 Salmeterol Xinaf/Fluticasone* (Advair*) 250-50 Diskus Inhaler, 1 INH INHALATION BID for 30 Days, #1 INHALER 3 Refills Prov:SHARRI CALVIN 11/02/18 Methylprednisolone* (Medrol* DOSE PACK) 4 Mg/Dose-Pack Tab.ds.pk, 4 MG PO . DIRECTED, #1 PACKET Prov:SHARRI CALVIN 11/02/18 Albuterol Sulfate* (Proair HFA*) 8.5 Gm Hfa.aer.ad, 2 PUFF INH Q4H PRN for WHEEZING AND SOB, #1 INHALER 3 Refills Prov:SHARRI CALVIN 11/02/18 Albuterol Sulfate* (Albuterol Sulfate* Neb) 0.083%-3 Ml Neb, 1.25 MG NEB Q3H PRN for WHEEZING AND SOB, #30 VIAL Prov:TERRY HERNANDES NP 09/27/18 Allergies Allergies: Coded Allergies: tuna oil (Verified Allergy, Unknown, SOB, HIVES, ITCHINESS, 02/18/19) PMhx/Soc History of Surgery: No Anesthesia Reaction: No Hx Neurological Disorder: No Hx Respiratory Disorders: Yes (copd, asthma) Hx Cardiac Disorders: No Hx Psychiatric Problems: No Hx Miscellaneous Medical Probl: Yes (hx of marijuana, cocaine use, former smoker, hx of alcohol use) Hx Alcohol Use: Yes Hx Substance Use: No Hx Tobacco Use: Yes Smoking Status: Current every day smoker Physical Exam Vitals Vital Signs Date Temp Pulse Resp B/P (MAP) Pulse Ox O2 O2 Flow FiO2 Time Delivery Rate 02/18/19 112 26 137/99 100 Mask 10.0 08:30 (112) 02/18/19 123 24 100 Simple 10.0 07:12 Mask 02/18/19 Simple 10 07:10 Mask 02/18/19 98.7 117 28 134/94 91 07:05 (107) Physical Exam Const: No in some mild respiratory distress in tripod position. Head: Atraumatic Eyes: Normal Conjunctiva Resp: Diffuse bilateral wheezing. Cardio: Regular rate and rhythm, no murmurs Ext: No cyanosis, or edema. Right lower extremity amputee. Neur: Awake and alert Psych: Normal Mood and Affect Result Diagram: 02/19/1961902/19/19 06 Results 24 hrs Laboratory Tests Test 02/18/19 07:32 02/18/19 07:33 Procalcitonin 0.04 ng/mL White Blood Count 9.7 10^3/ul Red Blood Count 6.14 10^6/ul Hemoglobin 15.1 g/dl Hematocrit 45.6 % Mean Corpuscular Volume 74.3 fl Mean Corpuscular Hemoglobin 24.6 pg Mean Corpuscular Hemoglobin Concent 33.1 g/dl Red Cell Distribution Width 14.4 % Platelet Count 325 10^3/UL Mean Platelet Volume 9.2 fl Immature Granulocytes % 0.300 % Neutrophils % 51.6 % Lymphocytes % 21.9 % Monocytes % 6.0 % Eosinophils % 18.9 % Basophils % 1.3 % Nucleated Red Blood Cells % 0.0 /100WBC Immature Granulocytes # 0.030 10^3/ul Neutrophils # 5.0 10^3/ul Lymphocytes # 2.1 10^3/ul Monocytes # 0.6 10^3/ul Eosinophils # 1.8 10^3/ul Basophils # 0.1 10^3/ul Nucleated Red Blood Cells # 0.0 10^3/ul Sodium Level 144 mmol/L Potassium Level 4.0 mmol/L Chloride Level 107 mmol/L Carbon Dioxide Level 27 mmol/L Anion Gap 10 Blood Urea Nitrogen 16 mg/dl Creatinine 0.90 mg/dl Est Glomerular Filtrat Rate mL/min > 60 mL/min Glucose Level 159 mg/dl Calcium Level 8.6 mg/dl Total Bilirubin 0.4 mg/dl Direct Bilirubin 0.00 mg/dl Indirect Bilirubin 0.4 mg/dl Aspartate Amino Transf (AST/SGOT) 25 IU/L Alanine Aminotransferase (ALT/SGPT) 24 IU/L Alkaline Phosphatase 51 IU/L Troponin I < 0.012 ng/ml Total Protein 7.4 g/dl Albumin 4.6 g/dl Globulin 2.80 g/dl Albumin/Globulin Ratio 1.64 Current Medications Medications Dose Sig/Rylie Start Time Status Last (Trade) Ordered Route PRN Stop Time Admin Dose Reason Admin 125 mg ONCE ONCE 02/18/19 DC 02/18/19 Methylprednis IV 07:30 02/18/19 07:11 olone Sodium 07:31 Succinate (Solu-Medrol) Albuterol 5 mg ONCE STAT 02/18/19 DC 02/18/19 (Proventil NEB 07:06 02/18/19 07:12 0.083% (Neb)) 07:09 Ipratropium 1.5 mg ONCE STAT 02/18/19 DC 02/18/19 Brogan NEB 07:06 02/18/19 07:12 (Atrovent 07:09 0.02% (Neb)) Lorazepam 0.5 mg ONCE ONCE 02/18/19 DC 02/18/19 (Ativan) IV 07:30 02/18/19 07:26 07:31 Magnesium 50 ml @ 25 ONCE STAT 02/18/19 DC 02/18/19 Sulfate mls/hr IVPB 07:55 02/18/19 08:31 09:54 125 mg STK-MED 02/18/19 DC Methylprednis ONCE .ROUTE 07:06 02/18/19 olone Sodium 17:27 Succinate (Solu-Medrol) Procedures/MDM Patient was seen and evaluated for SOB and difficulty breathing, most likely Asthma Exacerbation. Patient was given Nebulizer, Solumedrol 125mg IV, Ativan, and RT consult. CXR revealed Hyperinflated lungs. CBC, CMP, and Troponin-I are grossly normal. Patient had minimal improvement post treatment. After consultation with Dr. Harrell, it was decided to admit patient. MD Shashank: I saw and evaluated patient independently, and reviewed plan of care with mid level provider. In brief this is a 43-year-old male with a history of COPD/asthma, with multiple previous visits for similar complaints. He was given a breathing treatment, and experienced some relief in his symptoms, however on repeat exam, he to have wheezing, thus he was admitted, for serial reading treatments, otherwise he had no evidence of infection, and a low suspicion for acute coronary syndrome. Accepting Care Team: Current data and ongoing care discussed. Primary: Rahi Consulting: Outstanding Data: none Departure Diagnosis: Primary Impression: Asthma with status asthmaticus Asthma severity: mild Asthma persistence: unspecified Qualified Codes: J45.902 - Unspecified asthma with status asthmaticus Condition: Stable Patient Instructions: Asthma, Acute (Adult) Referrals: [facility] Additional Instructions: Patient will be admitted JAMEL MCKEON PA-C Feb 18, 2019 07:14 SHARRI HARRELL MD Feb 19, 2019 19:34
[2019-02-18] MEDS ORDERED: LORAZEPAM 2 MG INJ IV ONE (07:30)
[2019-02-18] MEDS ORDERED: METHYLPREDNISOLONE 125 MG INJ IV ONE (07:30)
[2019-02-18] MEDS ORDERED: MAGNESIUM SULFATE 2 GM/50 ML 50 ML IVPB STA (07:55)
[2019-02-18] MEDS ORDERED: ONDANSETRON 4 MG INJ IV PRN ×2 (09:00→10:00)
[2019-02-18] MEDS ORDERED: ACETAMINOPHEN 325 MG TAB PO PRN ×2 (09:00→10:00)
[2019-02-18] MEDS ORDERED: ADV25050 INHALATION (09:34)
[2019-02-18] MEDS ORDERED: ALBU8.5H8 INH (09:35)
[2019-02-18] MEDS ORDERED: morphine 2 MG INJ IV PRN (10:00)
[2019-02-18] MEDS ORDERED: ALBUTEROL/IPRATROPIUM (NEB) 3 ML AMP HHN PRN (10:00)
[2019-02-18] MEDS ORDERED: HYDROCODONE/APAP (5/325) TAB PO PRN (10:00)
[2019-02-18] MEDS ORDERED: NACL 0.9% 3 ML SYG IV SCH (10:00)
[2019-02-18] MEDS: FLUTICASONE/VILANTEROL 200-25 INH DEVICE INH SCH (11:19)
[2019-02-18] MEDS: ALBUTEROL/IPRATROPIUM (NEB) 3 ML AMP HHN SCH ×3 (12:21→20:39)
[2019-02-18 14:11] VITALS: Ht 165.1 cm; Wt 62.5 kg
[2019-02-18 14:17] VITALS: BP 115/77; PULSE 109; RESP 18
[2019-02-18] MEDS: METHYLPREDNISOLONE 125 MG INJ IV SCH ×2 (15:15→20:56)
--- NOTE | 2019-02-18 16:06 | HP ---
Date/Time of Note Date/Time of Note DATE: 02/18/19 TIME: 16:04 Assessment/Plan VTE Prophylaxis SCD applied (from Nsg): Yes Pharmacological prophylaxis: NA/contraindicated Pharm contraindication: low risk/ambulating Lines/Catheters IV Catheter Type (from Nrsg): Saline Lock Assessment/Plan Hospital Course Assessment and plan 1. Asthma with exacerbation. - Continue breathing treatments. - Continue with O2. - Continue steroid - Titrate down O2 as tolerated. 2. Suspect COPD. - Patient does follow-up with right of way agent as outpatient. - Patient was advised for smoking cessation. - Continue with breathing treatments. 3. History of cigarette smoking. - Cessation advised. Disposition and plan. Still noted with audible wheezing. Continue with breathing treatments. Await for clinical improvement of respiratory status. Discussed this with Dr. Sharp Result Diagram: 02/18/1933 02/18/1933 Results 24hrs Laboratory Tests Test 02/18/19 07:33 White Blood Count 9.7 Red Blood Count 6.14 H Hemoglobin 15.1 Hematocrit 45.6 Mean Corpuscular Volume 74.3 L Mean Corpuscular Hemoglobin 24.6 L Mean Corpuscular Hemoglobin Concent 33.1 Red Cell Distribution Width 14.4 Platelet Count 325 Mean Platelet Volume 9.2 Immature Granulocytes % 0.300 Neutrophils % 51.6 Lymphocytes % 21.9 Monocytes % 6.0 Eosinophils % 18.9 H Basophils % 1.3 Nucleated Red Blood Cells % 0.0 Immature Granulocytes # 0.030 Neutrophils # 5.0 Lymphocytes # 2.1 Monocytes # 0.6 Eosinophils # 1.8 H Basophils # 0.1 Nucleated Red Blood Cells # 0.0 Sodium Level 144 Potassium Level 4.0 Chloride Level 107 Carbon Dioxide Level 27 Anion Gap 10 Blood Urea Nitrogen 16 Creatinine 0.90 Est Glomerular Filtrat Rate mL/min > 60 Glucose Level 159 Calcium Level 8.6 Total Bilirubin 0.4 Direct Bilirubin 0.00 Indirect Bilirubin 0.4 Aspartate Amino Transf (AST/SGOT) 25 Alanine Aminotransferase (ALT/SGPT) 24 Alkaline Phosphatase 51 Troponin I < 0.012 Total Protein 7.4 Albumin 4.6 Globulin 2.80 Albumin/Globulin Ratio 1.64 HPI/ROS Admit Date/Time Admit Date/Time Feb 18, 2019 at 08:46 Hx of Present Illness This is a 43-year-old male with history of asthma, current cigarette smoker, suspect COPD, who came to the hospital due to reports of increased shortness of breath. According to the patient he started to have increased shortness of b reath for 1 day duration. He is more notably short of breath with exertion. He reports compliance with his home medication but states that he still smokes a cigarette every day 1 to 2 cigarettes. Due to worsening breathing he came to the hospital. Chest x-ray did show him to have hyperinflation of clear lungs. He was noted to be audibly wheezing. He was placed on breathing treatments as well as steroid treatment. He is also on oxygen currently. Denies any fevers. Currently does report better breathing at this time. We will evaluate him for the aformentiond issues. ROS 12 point review of systems obtained entirely negative except as mentioned in the history of present illness PMH/Family/Social Past Medical History Medical/surgical history 1. Asthma 2. Suspect COPD Medications Current Medications Ondansetron HCl (Zofran Inj) 4 mg ER BRIDGE PRN IV NAUSEA/VOMITING; Start 02/18/19 at 09:00; Stop 02/19/19 at 08:59 Acetaminophen (Tylenol Tab) 650 mg ER BRIDGE PRN PO .MILD PAIN 1-3 OR TEMP; Start 02/18/19 at 09:00; Stop 02/19/19 at 08:59 IV Flush (NS 3 ml) 3 ml PER PROTOCOL IV ; Start 02/18/19 at 10:00 Ondansetron HCl (Zofran Inj) 4 mg Q6H PRN IV NAUSEA/VOMITING; Start 02/18/19 at 10:00 Acetaminophen (Tylenol Tab) 650 mg Q6H PRN PO .PAIN 1-3 OR TEMP; Start 02/18/19 at 10:00 Acetaminophen/ Hydrocodone Bitart (Glide (5/325)) 1 tab Q6H PRN PO .MOD PAIN 4- 6; Start 02/18/19 at 10:00 Morphine Sulfate (morphine) 2 mg Q4H PRN IV .SEVERE PAIN 7-10; Start 02/18/19 at 10:00 Fluticasone/ Vilanterol (Breo Ellipta 200-25 Mcg Inh) 1 inh DAILY INH Last administered on 02/18/19at 11:19; Admin Dose 1 INH; Start 02/18/19 at 10:00 Albuterol/ Ipratropium (Duoneb) 3 ml Q2H RESP THERAPY PRN HHN sob; Start 02/18/19 at 10:00 Albuterol/ Ipratropium (Duoneb) 3 ml Q4HWA RESP THERAPY HHN Last administered on 02/18/19at 12:21; Admin Dose 3 ML; Start 02/18/19 at 13:00 Methylprednisolone Sodium Succinate (Solu-Medrol) 60 mg Q8 IV Last administered on 02/18/19at 15:15; Admin Dose 60 MG; Start 02/18/19 at 14:00 Coded Allergies: tuna oil (Verified Allergy, Unknown, SOB, HIVES, ITCHINESS, 02/18/19) Past Surgical History Past Surgical Hx: no surgical history Family History Significant Family History: no pertinent family hx Social History Alcohol Use: none Smoking Status: Current every day smoker Drug Use: none Exam/Review of Systems Vital Signs Vitals Vital Signs Date Temp Pulse Resp B/P (MAP) Pulse Ox O2 O2 Flow FiO2 Time Delivery Rate 02/18/19 Nasal 3.0 14:26 Cannula 02/18/19 98.3 109 18 115/77 96 14:17 (90) Exam Constitutional: alert, oriented Psych: nl mood/affect Head: normocephalic Neck: supple, non-tender Respiratory: wheezing Cardiovascular: other (Regular rate to tachycardic) Gastrointestinal: soft, non-tender Extremities: normal pulses Neurological: C[employer] P[employer]ER II-XII intact, nl mental status, nl speech Skin: nl BJ Hill NP Feb 18, 2019 16:06
[2019-02-18 16:14] VITALS: BP 114/79; PULSE 116; RESP 18
--- NOTE | 2019-02-18 17:47 | CONS ---
DATE OF ADMISSION: 02/18/2019 DATE OF CONSULTATION: TYPE OF CONSULTATION: Pulmonary. REASON FOR CONSULTATION: Shortness of breath. Thank you, Dr. Montaño, for this consultation. HISTORY OF PRESENT ILLNESS: This is a 43-year-old gentleman with a history of asthma, who presents w ith several-day history of increasing shortness of breath, orthopnea and PND. He was seen in the [facility] by myself. States he has had persistent respiratory distress. In addition, he continues to smoke tobacco and marijuana. PAST MEDICAL HISTORY: As above. MEDICATIONS: Per chart. ALLERGIES: NONE. SOCIAL HISTORY: Tobacco and marijuana history as noted. PHYSICAL EXAMINATION: GENERAL: Well-nourished, well-developed gentleman, comfortable at rest, in no acute distress. VITAL SIGNS: Currently afebrile, pulse is 100, blood pressure 115/77, O2 saturation 96%, FiO2 of 3 l iters. NECK: Supple. No JVD or lymphadenopathy. CARDIAC: S1, S2. No added sounds or murmurs. CHEST: Diminished air entry bilaterally. ABDOMEN: Soft, nontender. No guarding or rebound. EXTREMITIES: No cyanosis, clubbing, edema. NEUROLOGIC: Grossly intact. No focal deficits. LABORATORY DATA: White count 9.7, hemoglobin 15.1, platelets of 325. BUN 16, creatinine 0.9. DIAGNOSTIC DATA: Chest x-ray was reviewed, which showed mild hyperinflation. IMPRESSION AND PLAN: 1. Likely acute asthma exacerbation with acute hypoxemia. 2. Prior history of significant tobacco and marijuana use. RECOMMENDATIONS: 1. Bronchodilators. 2. Steroids. 3. Check procalcitonin level. The patient may not require antibiotics. Dictated By: NANCY CANTU/JUANJOSE Conf#: [id number] DID#: [id number] CC: GEORGE MONTAÑO;*EndCC*
[2019-02-18 19:48] VITALS: BP 126/69; PULSE 107; RESP 20
[2019-02-19 00:22] VITALS: BP 115/76; PULSE 99; RESP 18
[2019-02-19 04:08] VITALS: BP 123/81; PULSE 99; RESP 18
[2019-02-19] MEDS: METHYLPREDNISOLONE 125 MG INJ IV SCH ×3 (06:17→20:39)
[2019-02-19 08:02] VITALS: BP_SYST 117; BP_SYST 137; BP_DIAS 71; BP_DIAS 89; PULSE 70; PULSE 83; RESP 18
[2019-02-19] MEDS: FLUTICASONE/VILANTEROL 200-25 INH DEVICE INH SCH (08:29)
[2019-02-19] MEDS: ALBUTEROL/IPRATROPIUM (NEB) 3 ML AMP HHN SCH ×4 (08:36→20:03)
[2019-02-19 12:01] VITALS: BP 122/78; PULSE 90; RESP 20
[2019-02-19] MEDS ORDERED: ALBU8.5H8 INH (12:14)
[2019-02-19] MEDS ORDERED: ADV25050 INHALATION (12:14)
[2019-02-19] MEDS ORDERED: ALBU2.5V3 NEB (12:14)
--- NOTE | 2019-02-19 12:15 | PDOCDIS ---
Discharge Instructions DIAGNOSIS Discharge Diagnosis 1. Asthma with exacerbation. 2. Suspect COPD. 3. History of cigarette smoking. CONDITION [id number] Patient Condition: [id number] Stable HOME CARE INSTRUCTIONS: [id number] Diet Instructions: [id number] Regular FOLLOW UP/APPOINTMENTS Follow-up Plan 1. Follow up with your primary care doctor in one week BJ STEARNS NP Feb 19, 2019 12:15
[2019-02-19] MEDS ORDERED: MED4DP PO (13:23)
--- NOTE | 2019-02-19 14:59 | PN ---
Date/Time of Note Date/Time of Note DATE: 02/19/19 TIME: 14:58 Assessment/Plan VTE Prophylaxis Risk score (from Ns)>0 risk: 1 SCD applied (from Ns): Yes Pharmacological prophylaxis: NA/contraindicated Pharm contraindication: low risk/ambulating Lines/Catheters IV Catheter Type (from [facility]): Saline Lock Assessment/Plan Hospital Course Assessment and plan 1. Asthma with exacerbation. - Continue breathing treatments. - Continue with O2. - Continue steroid - Titrate down O2 as tolerated. - improving 2. Suspect COPD. - Patient does follow-up with curtain drier as outpatient. - Patient was advised for smoking cessation. - Continue with breathing treatments. 3. History of cigarette smoking. - Cessation advised. Disposition and plan. breathing improving. continue current tx. transfer to med/surg Discussed this with Dr. Sharp Result Diagram: 02/19/19 0620 02/19/19 0620 Results 24hrs Laboratory Tests Test 02/19/19 06:20 White Blood Count 11.5 H Red Blood Count 5.82 Hemoglobin 14.4 Hematocrit 43.1 Mean Corpuscular Volume 74.1 L Mean Corpuscular Hemoglobin 24.7 L Mean Corpuscular Hemoglobin Concent 33.4 Red Cell Distribution Width 14.5 Platelet Count 335 Mean Platelet Volume 9.1 Immature Granulocytes % 0.400 Neutrophils % 87.1 H Lymphocytes % 7.9 L Monocytes % 4.4 Eosinophils % 0.0 Basophils % 0.2 Nucleated Red Blood Cells % 0.0 Immature Granulocytes # 0.050 H Neutrophils # 10.0 H Lymphocytes # 0.9 Monocytes # 0.5 Eosinophils # 0.0 Basophils # 0.0 Nucleated Red Blood Cells # 0.0 Sodium Level 140 Potassium Level 4.8 Chloride Level 102 Carbon Dioxide Level 26 Anion Gap 12 Blood Urea Nitrogen 13 Creatinine 0.88 Est Glomerular Filtrat Rate mL/min > 60 Glucose Level 129 Hemoglobin A1c 5.0 Calcium Level 9.9 Phosphorus Level 4.1 Magnesium Level 2.1 Total Bilirubin 0.4 Direct Bilirubin 0.00 Indirect Bilirubin 0.4 Aspartate Amino Transf (AST/SGOT) 19 Alanine Aminotransferase (ALT/SGPT) 23 Alkaline Phosphatase 47 Total Protein 7.2 Albumin 4.6 Globulin 2.60 Albumin/Globulin Ratio 1.76 Triglycerides Level 42 Cholesterol Level 201 H LDL Cholesterol, Calculated 117 HDL Cholesterol 76 H Cholesterol/HDL Ratio 2.6 Thyroid Stimulating Hormone (TSH) 0.382 L Free Thyroxine Index 2.56 Thyroxine (T4) 6.8 Triiodothyronine (T3) Uptake 37.6 Subjective 24 Hr Interval Summary Free Text/Dictation Reports better breathing but still has some wheezing. Exam/Review of Systems Exam Vitals Vital Signs Date Temp Pulse Resp B/P (MAP) Pulse Ox O2 O2 Flow FiO2 Time Delivery Rate 02/19/19 91 18 93 21 13:13 02/19/19 98.0 122/78 12:01 (93) 02/19/19 Nasal 2.0 08:37 Cannula Intake and Output 02/18/19 02/18/19 02/19/19 1515:00 23:00 07:00 IntakeIntake Total 780 ml BalanceBalance 780 ml Exam Constitutional: alert, oriented Psych: nl mood/affect Head: normocephalic Neck: supple, non-tender Respiratory: wheezing, less Cardiovascular: other (Regular rate Gastrointestinal: soft, non-tender Extremities: normal pulses Neurological: [employer]URE [employer]OR II-XII intact, nl mental status, nl speech Skin: nl turgor Results Results 24hrs Laboratory Tests Test 02/19/19 06:20 White Blood Count 11.5 H Red Blood Count 5.82 Hemoglobin 14.4 Hematocrit 43.1 Mean Corpuscular Volume 74.1 L Mean Corpuscular Hemoglobin 24.7 L Mean Corpuscular Hemoglobin Concent 33.4 Red Cell Distribution Width 14.5 Platelet Count 335 Mean Platelet Volume 9.1 Immature Granulocytes % 0.400 Neutrophils % 87.1 H Lymphocytes % 7.9 L Monocytes % 4.4 Eosinophils % 0.0 Basophils % 0.2 Nucleated Red Blood Cells % 0.0 Immature Granulocytes # 0.050 H Neutrophils # 10.0 H Lymphocytes # 0.9 Monocytes # 0.5 Eosinophils # 0.0 Basophils # 0.0 Nucleated Red Blood Cells # 0.0 Sodium Level 140 Potassium Level 4.8 Chloride Level 102 Carbon Dioxide Level 26 Anion Gap 12 Blood Urea Nitrogen 13 Creatinine 0.88 Est Glomerular Filtrat Rate mL/min > 60 Glucose Level 129 Hemoglobin A1c 5.0 Calcium Level 9.9 Phosphorus Level 4.1 Magnesium Level 2.1 Total Bilirubin 0.4 Direct Bilirubin 0.00 Indirect Bilirubin 0.4 Aspartate Amino Transf (AST/SGOT) 19 Alanine Aminotransferase (ALT/SGPT) 23 Alkaline Phosphatase 47 Total Protein 7.2 Albumin 4.6 Globulin 2.60 Albumin/Globulin Ratio 1.76 Triglycerides Level 42 Cholesterol Level 201 H LDL Cholesterol, Calculated 117 HDL Cholesterol 76 H Cholesterol/HDL Ratio 2.6 Thyroid Stimulating Hormone (TSH) 0.382 L Free Thyroxine Index 2.56 Thyroxine (T4) 6.8 Triiodothyronine (T3) Uptake 37.6 Medications Medication Current Medications IV Flush (NS 3 ml) 3 ml PER PROTOCOL IV ; Start 02/18/19 at 10:00 Ondansetron HCl (Zofran Inj) 4 mg Q6H PRN IV NAUSEA/VOMITING; Start 02/18/19 at 10:00 Acetaminophen (Tylenol Tab) 650 mg Q6H PRN PO .PAIN 1-3 OR TEMP; Start 02/18/19 at 10:00 Acetaminophen/ Hydrocodone Bitart ([place] (5/325)) 1 tab Q6H PRN PO .MOD PAIN 4- 6; Start 02/18/19 at 10:00 Morphine Sulfate (morphine) 2 mg Q4H PRN IV .SEVERE PAIN 7-10; Start 02/18/19 at 10:00 Fluticasone/ Vilanterol (Breo Ellipta 200-25 Mcg Inh) 1 inh DAILY INH Last administered on 02/19/19at 08:29; Admin Dose 1 INH; Start 02/18/19 at 10:00 Albuterol/ Ipratropium (Duoneb) 3 ml Q2H RESP THERAPY PRN HHN sob; Start 02/18/19 at 10:00 Albuterol/ Ipratropium (Duoneb) 3 ml Q4HWA RESP THERAPY HHN Last administered on 02/19/19at 13:13; Admin Dose 3 ML; Start 02/18/19 at 13:00 Methylprednisolone Sodium Succinate (Solu-Medrol) 60 mg Q8 IV Last administered on 02/19/19at 14:02; Admin Dose 60 MG; Start 02/18/19 at 14:00 BJ STEARNS NP Feb 19, 2019 14:59
--- NOTE | 2019-02-19 15:22 | CONS ---
Consult Date/Type/Reason Admit Date/Time Feb 18, 2019 at 08:46 Initial Consult Date Type of Consult Pulmonary Date/Time of Note DATE: 02/19/19 TIME: 15:21 Subjective Patient stable no new events. Objective Vital Signs Date Temp Pulse Resp B/P (MAP) Pulse Ox O2 O2 Flow FiO2 Time Delivery Rate 02/19/19 91 18 93 21 13:13 02/19/19 98.0 122/78 12:01 (93) 02/19/19 Nasal 2.0 08:37 Cannula Intake and Output 02/18/19 02/18/19 02/19/19 1515:00 23:00 07:00 IntakeIntake Total 780 ml BalanceBalance 780 ml Exam PHYSICAL EXAMINATION: GENERAL: Well-nourished, well-developed gentleman, comfortable at rest, in no acute distress. VITAL SIGNS: As above NECK: Supple. No JVD or lymphadenopathy. CARDIAC: S1, S2. No added sounds or murmurs. CHEST: Diminished air entry bilaterally. ABDOMEN: Soft, nontender. No guarding or rebound. EXTREMITIES: No cyanosis, clubbing, edema. NEUROLOGIC: Grossly intact. No focal deficits. Vent Setting Fraction of Inspired Oxygen pe: 21 Results/Medications Result Diagram: 02/19/19 0620 02/19/19 0620 Results 24 hrs Laboratory Tests Test 02/19/19 06:20 White Blood Count 11.5 H Red Blood Count 5.82 Hemoglobin 14.4 Hematocrit 43.1 Mean Corpuscular Volume 74.1 L Mean Corpuscular Hemoglobin 24.7 L Mean Corpuscular Hemoglobin Concent 33.4 Red Cell Distribution Width 14.5 Platelet Count 335 Mean Platelet Volume 9.1 Immature Granulocytes % 0.400 Neutrophils % 87.1 H Lymphocytes % 7.9 L Monocytes % 4.4 Eosinophils % 0.0 Basophils % 0.2 Nucleated Red Blood Cells % 0.0 Immature Granulocytes # 0.050 H Neutrophils # 10.0 H Lymphocytes # 0.9 Monocytes # 0.5 Eosinophils # 0.0 Basophils # 0.0 Nucleated Red Blood Cells # 0.0 Sodium Level 140 Potassium Level 4.8 Chloride Level 102 Carbon Dioxide Level 26 Anion Gap 12 Blood Urea Nitrogen 13 Creatinine 0.88 Est Glomerular Filtrat Rate mL/min > 60 Glucose Level 129 Hemoglobin A1c 5.0 Calcium Level 9.9 Phosphorus Level 4.1 Magnesium Level 2.1 Total Bilirubin 0.4 Direct Bilirubin 0.00 Indirect Bilirubin 0.4 Aspartate Amino Transf (AST/SGOT) 19 Alanine Aminotransferase (ALT/SGPT) 23 Alkaline Phosphatase 47 Total Protein 7.2 Albumin 4.6 Globulin 2.60 Albumin/Globulin Ratio 1.76 Triglycerides Level 42 Cholesterol Level 201 H LDL Cholesterol, Calculated 117 HDL Cholesterol 76 H Cholesterol/HDL Ratio 2.6 Thyroid Stimulating Hormone (TSH) 0.382 L Free Thyroxine Index 2.56 Thyroxine (T4) 6.8 Triiodothyronine (T3) Uptake 37.6 Medications Current Medications IV Flush (NS 3 ml) 3 ml PER PROTOCOL IV ; Start 02/18/19 at 10:00 Ondansetron HCl (Zofran Inj) 4 mg Q6H PRN IV NAUSEA/VOMITING; Start 02/18/19 at 10:00 Acetaminophen (Tylenol Tab) 650 mg Q6H PRN PO .PAIN 1-3 OR TEMP; Start 02/18/19 at 10:00 Acetaminophen/ Hydrocodone Bitart ([place] (5/325)) 1 tab Q6H PRN PO .MOD PAIN 4- 6; Start 02/18/19 at 10:00 Morphine Sulfate (morphine) 2 mg Q4H PRN IV .SEVERE PAIN 7-10; Start 02/18/19 at 10:00 Fluticasone/ Vilanterol (Breo Ellipta 200-25 Mcg Inh) 1 inh DAILY INH Last administered on 02/19/19at 08:29; Admin Dose 1 INH; Start 02/18/19 at 10:00 Albuterol/ Ipratropium (Duoneb) 3 ml Q2H RESP THERAPY PRN HHN sob; Start 02/18/19 at 10:00 Albuterol/ Ipratropium (Duoneb) 3 ml Q4HWA RESP THERAPY HHN Last administered on 02/19/19at 13:13; Admin Dose 3 ML; Start 02/18/19 at 13:00 Methylprednisolone Sodium Succinate (Solu-Medrol) 60 mg Q8 IV Last administered on 02/19/19at 14:02; Admin Dose 60 MG; Start 02/18/19 at 14:00 Assessment/Plan Hospital Course (Demo Recall) IMPRESSION AND PLAN: 1. Likely acute asthma exacerbation with acute hypoxemia. 2. Prior history of significant tobacco and marijuana use. RECOMMENDATIONS: 1. Bronchodilators. 2. Steroids. 3. Procalcitonin level not consistent with infectious process. Anticipate discharge tomorrow. NANCY KABA MD, [facility] Feb 19, 2019 15:22
[2019-02-19 16:24] VITALS: BP 134/67; PULSE 90; RESP 18
[2019-02-19 20:32] VITALS: BP 142/78; PULSE 111; RESP 18
[2019-02-19] MEDS: GUAIFENESIN/DM 5ML CUP PO PRN (21:59)
[2019-02-20 00:06] VITALS: BP 137/83; PULSE 97; RESP 18
[2019-02-20 04:14] VITALS: BP 120/77; PULSE 98; RESP 18
[2019-02-20] MEDS: METHYLPREDNISOLONE 125 MG INJ IV SCH ×2 (06:07→14:00)
[2019-02-20] MEDS: GUAIFENESIN/DM 5ML CUP PO PRN (06:12)
[2019-02-20 07:39] VITALS: BP 121/78; PULSE 91; RESP 18
[2019-02-20] MEDS: ALBUTEROL/IPRATROPIUM (NEB) 3 ML AMP HHN SCH ×2 (09:51→13:23)
[2019-02-20] MEDS: FLUTICASONE/VILANTEROL 200-25 INH DEVICE INH SCH (10:41)
[2019-02-20 11:16] VITALS: BP 136/82; PULSE 112; RESP 18
--- NOTE | 2019-02-20 20:59 | DS ---
Date/Time of Note Date/Time of Note DATE: 02/20/19 TIME: 20:57 Discharge Summary Admission/Discharge Info Admit Date/Time Feb 18, 2019 at 08:46 Discharge Date/Time Feb 20, 2019 at 16:13 Discharge Diagnosis 1. Asthma with exacerbation. 2. Suspect COPD. 3. History of cigarette smoking. Patient Condition: Stable Hospital Course This is a 43-year-old male with history of asthma, current cigarette smoker, suspect COPD, who came to the hospital due to reports of increased shortness of breath. According to the patient he started to have increased shortness of breath for 1 day duration. He is more notably short of breath with exertion. He reports compliance with his home medication but states that he still smokes a cigarette every day 1 to 2 cigarettes. Due to worsening breathing he came to the hospital. Chest x-ray did show him to have hyperinflation of clear lungs. He was noted to be audibly wheezing. He was placed on breathing treatments as well as steroid treatment. He was also seen by aircraft systems repairer. We did monitor for clinical improvement of his respiratory status. We did titrate him off of oxygen. He did have reported history of cigarette smoking and was advised for cessation. He was advised to follow-up with his outpatient aircraft systems repairer and see if he continue his breathing treatments. During his course of stay he did improve. The plan of care was discussed with patient and he verbalized his understanding. On the day of discharge patient was in stable condition Discussed POC with Dr. Sharp [place] Meds Active Scripts Methylprednisolone* (Medrol* DOSE PACK) 4 Mg/Dose-Pack Tab.ds.pk, 4 MG PO . DIRECTED, #1 PACKET Prov:BJ STEARNS NP 02/19/19 Albuterol Sulfate* (Albuterol Sulfate* Neb) 0.083%-3 Ml Neb, 2.5 MG NEB Q4H, #60 VIAL Prov:BJ STEARNS NP 02/19/19 Albuterol Sulfate* (Proair HFA*) 8.5 Gm Hfa.aer.ad, 2 PUFF INH Q4H PRN for WHEEZING AND SOB, #1 INHALER Prov:BJ STEARNS NP 02/19/19 Salmeterol Xinaf/Fluticasone* (Advair*) 250-50 Diskus Inhaler, 1 INH INHALATION BID, #1 INHALER Prov:BJ STEARNS NP 02/19/19 Discontinued Scripts Azithromycin* (Azithromycin*) 250 Mg Tablet, 250 MG PO DAILY, #4 TAB Prov:SHARRI CALVIN 11/02/18 Montelukast Sodium* (Montelukast Sodium*) 10 Mg Tablet, 10 MG PO HS for 30 Days, #30 TAB 1 Refill Prov:SHARRI CALVIN 11/02/18 Salmeterol Xinaf/Fluticasone* (Advair*) 250-50 Diskus Inhaler, 1 INH INHALATION BID for 30 Days, #1 INHALER 3 Refills Prov:SHARRI CALVIN 11/02/18 Methylprednisolone* (Medrol* DOSE PACK) 4 Mg/Dose-Pack Tab.ds.pk, 4 MG PO . DIRECTED, #1 PACKET Prov:SHARRI CALVIN 11/02/18 Albuterol Sulfate* (Proair HFA*) 8.5 Gm Hfa.aer.ad, 2 PUFF INH Q4H PRN for WHEEZING AND SOB, #1 INHALER 3 Refills Prov:SHARRI CALVIN 11/02/18 Albuterol Sulfate* (Albuterol Sulfate* Neb) 0.083%-3 Ml Neb, 1.25 MG NEB Q3H PRN for WHEEZING AND SOB, #30 VIAL Prov:TERRY HERNANDES NP 09/27/18 Follow-up Plan 1. Follow up with your primary care doctor in one week Primary Care Provider Nathan Henson MD Time spent on discharge: > 30 minutes BJ STEARNS NP Feb 20, 2019 20:59
== END 2019-02-20 16:13 | disposition home or self-care (01) | DRG 191 ==
LOC: E/R 06:58 → TEL 08:46
PROVIDERS: ADMIT Hospitalist; ATTEND Hospitalist
DX: J44.9 Chronic obstructive pulmonary disease, unspecified (principal); J45.901 Unspecified asthma with (acute) exacerbation; R09.02 Hypoxemia; F17.200 Nicotine dependence, unspecified, uncomplicated; F12.90 Cannabis use, unspecified, uncomplicated
CPT/HCPCS: 71045; 80053; 80061; 83036; 83735; 84100; 84145; 84436; 84443; 84479; 84484; 85025; 93005; 94640; 94644; 94664; 96374; 96375; J2060; J2930; J3475